=== PATIENT | female | born 1940 | race Caucasian/White ===

== ENCOUNTER → 2018-01-23 07:15 | Outpatient (CLI) | payer MEDICARE, OTHER, SELFPAY ==
[2018-01-23 09:11] LABS: Cholesterol 244 mg/dL (140-199); HDL Cholesterol 57 mg/dL (40-60); LDL Cholesterol Calculated 156 mg/dL (<100); Triglycerides 155 mg/dL (35-150)
== END ==
PROVIDERS: Family Provider Family Medicine; PCP Family Medicine; Visit Provider Family Medicine
DX: E78.5 Hyperlipidemia, unspecified (principal)
CPT/HCPCS: 36415; 80061

== ENCOUNTER → 2018-08-10 14:31 | Outpatient (CLI) | payer MEDICARE, OTHER, SELFPAY ==
[2018-08-10 15:36] LABS: Add Manual Diff / Slide Review NO; Basophils Percent Auto 0.5 % (0-2); Eosinophils Percent Auto 3.9 % (2-4); Hematocrit 46.6 % (36-46); Hemoglobin 15.5 g/dL (12.0-16.0); Lymphocytes Percent Auto 25.5 % (25-40); Mean Corpuscular HGB Conc 33.2 % (30-36); Mean Corpuscular Hemoglobin 29.9 PG (26-34); Mean Corpuscular Volume 89.9 fL (80-100); Monocytes Percent Auto 8.4 % (3-14); Neutrophils Absolute Auto 4200 /uL (3000-5900); Neutrophils Percent Auto 61.7 % (50-75); Platelet Count 209 X10^3/uL (150-400); Red Blood Cell Count 5.18 X10^6/uL (4.0-5.2); Red Cell Distribution Width 13.5 % (11.6-14.8); White Blood Cell Count 6.8 X10^3/uL (4.5-11.0)
[2018-08-10 15:47] LABS: Appearance Urine UA CLEAR; Bilirubin Urine UA NEGATIVE (NEGATIVE); Color Urine UA YELLOW; Glucose Urine UA NEGATIVE (Normal); Ketones Urine UA NEGATIVE (NEGATIVE); Leukocyte Esterase Urine UA 1+ (NEGATIVE); Nitrite Urine UA NEGATIVE (Negative); Occult Blood Urine UA TRACE-INTACT (Negative); Protein Urine UA TRACE (Negative); Urobilinogen Urine UA 0.2 E.U./dL (0.2); pH Urine UA 5.5 (4.5-8.0)
[2018-08-10 15:49] LABS: Alanine Aminotransferase 27 IU/L (9-52); Albumin 4.1 g/dL (3.5-5.0); Albumin Globulin Ratio 1.4 (1.0-2.8); Alkaline Phosphatase 83 U/L (38-126); Aspartate Aminotransferase 33 IU/L (14-36); Bilirubin Total 0.2 mg/dL (0.2-1.3); Blood Urea Nitrogen 20 mg/dL (7-17); Calcium 9.9 mg/dL (8.4-10.2); Carbon Dioxide 31 mmol/L (22-32); Chloride 105 mmol/L (98-107); Estimated Glomerular Filt Rate 53.3 mL/min (>60); Globulin 2.9 g/dL (1.7-4.1); Glucose 99 mg/dL (80-110); HEMOLYSIS < 15 (0-50); Potassium 4.6 mmol/L (3.4-5.1); Sodium 145 mmol/L (137-145)
[2018-08-10 15:55] LABS: RBC Urine None Seen (0-5/HPF)
[2018-08-10 16:13] LABS: Bacteria Urine Occasional (0-1); Culture Indicated Urine Specimen Cultured; Squamous Epithelial Cell Urine 0-1 /HPF; Transitional Epi Cells Urine 0-1/HPF (0-5/HPF); WBC Urine 5-10/HPF (0-5/HPF)
[2018-08-10 16:17] LABS: Thyroid Stimulating Hormone 1.59 uIU/mL (0.47-4.68)
== END ==
PROVIDERS: Family Provider Family Medicine; PCP Family Medicine; Visit Provider Internal Medicine
DX: R10.11 Right upper quadrant pain (principal); R11.0 Nausea; Z87.440 Personal history of urinary (tract) infections
CPT/HCPCS: 36415; 80053; 81003; 81015; 84443; 85025; 87086

== ENCOUNTER → 2018-08-21 13:12 | Outpatient (CLI) | payer MEDICARE, OTHER, SELFPAY ==
--- NOTE | 2018-08-21 13:13 | DI.US.S_ITS ---
PROCEDURE: US PELVIC COMPLETE INDICATIONS: RUQ AND ABDOMINAL PAIN, NAUSEA TECHNIQUE: Real-time scanning was performed of the pelvic organs, with image documentation. Additional endovaginal scanning was performed at the patient's request. COMPARISON: None. FINDINGS: Transabdominal scanning: Limited scanning through the kidneys shows no hydronephrosis. No pathologic free abdominal or pelvic fluid. Endovaginal scanning: Uterus: Uterus is normal in size at 6.8 x 2.2 x 3.1 cm. The endometrium is not well visualized and there is a 1.6 x 1.3 x 1.5 cm hypoechoic focus within the mid uterus. Ovaries: Normal left ovary measured 1.2 x 0.7 x 1.5 cm. The right ovary is not seen. No adnexal masses. IMPRESSION: 1. Limited examination as high-resolution into vaginal ultrasound was declined by the patient. Within the limits, hypoechoic focus within the mid uterus which could represent a fibroid, although other both benign or malignant etiologies cannot be excluded. If indicated, pre and postcontrast gynecologic protocol MRI could be performed. Dictated by: Ishan Bright Leighton Interpreted: Abdifatah Brice MD on 08/21/2018 at 14:21 Approved by: Abdifatah Brice M.D. on 08/21/2018 at 14:29
--- NOTE | 2018-08-21 13:13 | DI.US.S_ITS ---
PROCEDURE: US ABDOMEN COMPLETE INDICATIONS: RUQ PAIN AND NAUSEA TECHNIQUE: Real-time scanning was performed of the abdominal and retroperitoneal organs, with image documentation. COMPARISON: [facility], US, ABDOMEN COMPLETE, 05/29/2016, 8:22. FINDINGS: Liver: Liver is normal in size and homogeneous in echotexture. Gallbladder: No gallstones identified. Normal gallbladder wall. No pericholecystic fluid. Negative sonographic Lebron sign. Biliary ducts: Intrahepatic bile ducts are non-dilated. Extrahepatic bile duct caliber measures 5.0 mm. Normal is 6-7 mm or less in diameter, or 10 mm or less post-cholecystectomy. Pancreas: Visualized portions of the pancreas are sonographically normal. Spleen: Spleen is normal in size and homogeneous in echotexture. Kidneys: Right kidney not well-seen left kidney measures 8.6 cm long. No hydronephrosis or nephrolithiasis. No solid masses. Aorta: Visualized aorta is normal in caliber at less than 3 cm. Iliacs: Not well-seen. IVC: Intrahepatic inferior vena cava is patent. Miscellaneous: No free abdominal fluid. IMPRESSION: 1. No source for right upper quadrant pain and nausea identified. Dictated by: Ishan Bright [facility] Interpreted: Abdifatah Brice MD on 08/21/2018 at 14:19 Approved by: Abdifatah Brice M.D. on 08/21/2018 at 14:29
== END ==
PROVIDERS: Family Provider Family Medicine; PCP Family Medicine; Visit Provider Internal Medicine
DX: R10.11 Right upper quadrant pain (principal); R11.0 Nausea
CPT/HCPCS: 76700; 76856

== ENCOUNTER 2018-08-22 19:15 | Emergency (ER) | payer MEDICARE, OTHER, SELFPAY ==
[2018-08-22 19:24] VITALS: BP 145/87; PULSE 78; RESP 16; TEMP 36.1; O2SAT 95; BMI 27.4
--- NOTE | 2018-08-22 21:45 | ED.EXTPRO ---
HPI - Extremity Problem <JEANNE Sheth - Last Filed: 08/22/18 22:31> General Chief complaint: Extremity Problem,Nontraumatic Stated complaint: RIGHT SHOULDER PAIN Time Seen by Provider: 08/22/18 21:43 Source: patient Mode of arrival: ambulatory Limitations: no limitations History of Present Illness HPI Narrative: 78-year-old female with history of COPD and hypertension is a nonsmoker for complaint of pain into her right biceps area. She states that she was pulling clothes out of the dryer earlier today when she felt pain to the right biceps area. She denies any trauma. No falls. She did not Bang her bicep into any objects. Increased pain with flexion of the right arm. Decreased pain with holding the right arm still. She states use Tylenol for the discomfort earlier today but it did not help much. She denies any other injuries or concerns at this point. Related Data Home Medications Medication Instructions Recorded Confirmed aspirin 81 mg PO QDAY #0 06/10/13 08/10/18 biotin 500 mcg #0 08/14/17 08/10/18 calcium carbonate 600 mg PO #0 08/14/17 08/10/18 losartan 50 mg tablet 50 mg PO DAILY 08/10/18 08/10/18 Previous Rx's Medication Instructions Recorded albuterol sulfate [Ventolin HFA] 2 puff IH Q4HP PRN #1 inh 09/11/16 fluticasone [Flovent HFA] 2 puff IH QID PRN #1 inh 09/30/16 hydrocodone 5 mg-acetaminophen 300 1 tab PO Q6H PRN #10 tab 04/07/18 mg tablet fluocinolone acetonide oil 0.01 % 1 drop OTIC (EAR) BID #20 ml 04/30/18 ear drops hydrocodone-acetaminophen [[place]] 1 tab PO Q6H PRN #5 tab 08/22/18 Allergies Allergy/AdvReac Type Severity Reaction Status Date / Time Sulfa (Sulfonamide Allergy Mild RASH Verified 08/22/18 19:24 Antibiotics) gabapentin [From NEURONTIN] Allergy Unknown muscle pain Verified 08/22/18 19:24 atorvastatin AdvReac Severe severe Verified 08/22/18 19:24 myalgia -ADMITTED TO ICU codeine AdvReac Mild N/V Verified 08/22/18 19:24 erythromycin base AdvReac Mild VOMITING Verified 08/22/18 19:24 Review of Systems <JEANNE Sheth - Last Filed: 08/22/18 22:31> Eyes Denies change in vision, Denies eye discharge, Denies irritation and Denies loss of vision ENT Ears, Nose, Mouth, and Throat: Denies change in voice, Denies neck pain and Denies sore throat Cardiovascular Denies chest pain, Denies irregular heart rhythm, Denies lightheadedness, Denies palpitations, Denies dyspnea, Denies dyspnea on exertion and Denies orthopnea Respiratory Denies cough, Denies dyspnea, Denies dyspnea on exertion and Denies wheezing Gastrointestinal Gastrointestinal: Denies abdominal pain, Denies change in bowel habits, Denies diarrhea, Denies nausea and Denies vomiting Genitourinary Denies hematuria, Denies flank pain, Denies urinary incontinence and Denies urinary urgency Musculoskeletal Denies neck pain Comments: Right arm pain Integumentary/Breasts Denies pruritus, Denies erythema, Denies rash and Denies wounds Neurologic Denies confusion and Denies loss of vision Psychiatric Denies anxiety, Denies confusion, Denies depression, Denies homicidal ideation and Denies suicidal ideation Endocrine Denies palpitations Allergic/Immunologic Denies wheezing Exam <JEANNE Sheth - Last Filed: 08/22/18 22:31> Initial Vital Signs Initial Vital Signs: Vital Signs Temperature 96.9 F L 08/22/18 19:24 Pulse Rate 78 08/22/18 19:24 Respiratory Rate 16 08/22/18 19:24 Blood Pressure 145/87 H 08/22/18 19:24 Pulse Oximetry 95 08/22/18 19:24 Const General: cooperative and well developed Nutritional Appearance: well nourished Orientation: alert, awake, oriented x3 and not confused [facility] Mouth: oral mucosae normal and moist mucous membranes Eyes Conjunctivae: conjunctivae normal Sclera: sclerae normal Pupils: PERRL EOM: EOM intact bilaterally Resp Effort & Inspection: normal respiratory effort, able to speak in complete sentences, no respiratory distress and no use of accessory muscles Auscultation: clear to auscultation bilaterally, no rales, no rhonchi and no wheezes Cardio Rate: regular rate Rhythm: regular rhythm Heart Sounds: no click, no gallops, no murmurs and no rubs Pulses: normal peripheral pulses Skin General: no rashes or lesions noted, No jaundice and No petechiae Neuro General: alert, oriented x3, gait normal and no focal motor deficits Speech: speech normal Extrem Other: tenderness on palpation to the right biceps area. Erythema to the anterior biceps area. No significant swelling. No induration no fluctuance. No deformities. Distal sensation is intact. Distal range of motion is intact. Distal pulses are intact. Biceps comparable in size to left biceps. <Ra Carlsno MD - Last Filed: 08/23/18 05:09> Initial Vital Signs Initial Vital Signs: Vital Signs Temperature 96.9 F L 08/22/18 19:24 Pulse Rate 78 08/22/18 19:24 Respiratory Rate 16 08/22/18 19:24 Blood Pressure 145/87 H 08/22/18 19:24 Pulse Oximetry 95 08/22/18 19:24 Course <JEANNE Sheth - Last Filed: 08/22/18 22:31> Orders Ordered: Discontinued Medications Hydrocodone Bitart/Acetaminophen ([place] 5/325) 1 tab PO NOW ONE Stop: 08/22/18 21:59 Last Admin: 08/22/18 22:11 Dose: 1 tab Vital Signs - 8 hr 08/22/18 22:18 Pulse Rate 83 Blood Pressure 139/92 H <Ra Carlson MD - Last Filed: 08/23/18 05:09> Orders Ordered: Discontinued Medications Hydrocodone Bitart/Acetaminophen ([place] 5/325) 1 tab PO NOW ONE Stop: 08/22/18 21:59 Last Admin: 08/22/18 22:11 Dose: 1 tab Vital Signs - 8 hr 08/22/18 22:18 Pulse Rate 83 Blood Pressure 139/92 H MDM - Extremity (Nontraumatic) <JEANNE Sheth - Last Filed: 08/22/18 22:31> MDM Narrative Medical decision making narrative: no significant hematoma appreciated to the right biceps area. Right biceps appears intact. signs and symptoms presents as strain into the right biceps area. Will treat conservatively at this point with Tylenol. Patient request pain medication other than Tylenol so she is given a handful of [place]. Follow up with primary care provider later this week for re-evaluation. If continued pain or problems may need advanced imaging such as MRI. Rest area. Any worsening symptoms return to the emergency room. Discharge Plan Departure Patient Disposition: Home Clinical Impression: Muscle strain of right upper arm Discharge Date/Time: 08/22/18 22:20 Interventions: ED Discharge Assessment Last Done: 08/22/18 22:18 Instructions: DI for Muscle Strain Activity Restrictions/Additional Instructions: biceps muscle appears to be intact at this time. Signs and symptoms presents as a muscle strain. Rest area. Use [id number] Tylenol as needed for any discomfort. Small amount of [place] is provided for breakthrough pain use as directed no driving while on the [place]. Follow up with your primary care provider later this week for re-evaluation. If continued pain or worsening pain me to have advanced imaging such as MRI. For any worsening symptoms return to the emergency room. Prescriptions: New hydrocodone-acetaminophen [[place]] 5-325 mg tablet 1 tab PO Q6H PRN (Reason: pain) Qty: 5 RF: 0 No Action aspirin 81 MG tablet,delayed release (DR/EC) 81 mg PO QDAY Qty: 0 RF: 0 albuterol sulfate [Ventolin HFA] 90 MCG/PUFF HFA aerosol inhaler 2 puff IH Q4HP PRNQty: 1 RF: 6 fluticasone [Flovent HFA] 12 GM HFA aerosol inhaler 2 puff IH QID PRNQty: 1 RF: 3 calcium carbonate 600 MG tablet 600 mg PO Qty: 0 RF: 0 biotin 300 MCG tablet 500 mcg Qty: 0 RF: 0 fluocinolone acetonide oil [DermOtic Oil] 0.01 % drops 1 drop otic (ear) BID Qty: 20 RF: 2 hydrocodone-acetaminophen 5-300 mg tablet 1 tab PO Q6H PRN (Reason: pain) Qty: 10 RF: 0 losartan 50 mg tablet 50 mg PO DAILY RF: 0 Referrals: Archie Alexander MD [Primary Care Provider] - <Ra Carlson MD - Last Filed: 08/23/18 05:09> Cosign ED Attending Cosignature Attestation: I was present in the ER at the time this patient's care. I was available for verbal consultation or to see the patient directly if requested. I agree with the assessment and treatment plan.
[2018-08-22] MEDS: HYDROCODONE/ACET 5/325 TABLET 1 TAB PO (22:11)
[2018-08-22 22:18] VITALS: BP 139/92; PULSE 83
== END 2018-08-22 22:20 | disposition home or self-care (01) ==
PROVIDERS: Emergency Provider Nurse Practitioner Family; Family Provider Family Medicine; PCP Family Medicine
DX: S46.911A Strain of unspecified muscle, fascia and tendon at shoulder and upper arm level, right arm, initial encounter (principal); X50.1XXA Overexertion from prolonged static or awkward postures, initial encounter
CPT/HCPCS: 99282; 99283

== ENCOUNTER → 2018-10-27 07:28 | Outpatient (CLI) | payer MEDICARE, OTHER, SELFPAY ==
[2018-10-27 09:08] LABS: Cholesterol 268 mg/dL (140-199); HDL Cholesterol 54 mg/dL (40-60); LDL Cholesterol Calculated 173 mg/dL (<100); Triglycerides 205 mg/dL (35-150)
== END ==
PROVIDERS: Family Provider Family Medicine; PCP Family Medicine; Visit Provider Family Medicine
DX: E78.5 Hyperlipidemia, unspecified (principal)
CPT/HCPCS: 36415; 80061

== ENCOUNTER → 2019-02-10 07:21 | Outpatient (CLI) | payer MEDICARE, OTHER, SELFPAY ==
[2019-02-10 08:46] LABS: Cholesterol 207 mg/dL (140-199); HDL Cholesterol 58 mg/dL (40-60); LDL Cholesterol Calculated 122 mg/dL (<100); Triglycerides 133 mg/dL (35-150)
== END ==
PROVIDERS: PCP Family Medicine; Visit Provider Family Medicine
DX: E78.5 Hyperlipidemia, unspecified (principal)
CPT/HCPCS: 36415; 80061

== ENCOUNTER → 2019-06-10 09:02 | Outpatient (CLI) | payer MEDICARE, OTHER, SELFPAY ==
[2019-06-10 10:29] LABS: Appearance Urine UA CLEAR; Bilirubin Urine UA NEGATIVE (NEGATIVE); Color Urine UA YELLOW; Glucose Urine UA NEGATIVE (Negative); Ketones Urine UA NEGATIVE (NEGATIVE); Leukocyte Esterase Urine UA TRACE (NEGATIVE); Nitrite Urine UA NEGATIVE (Negative); Occult Blood Urine UA NEGATIVE (Negative); Protein Urine UA NEGATIVE (Negative); Specific Gravity Urine UA <=1.005 (1.000-1.035); Urobilinogen Urine UA 0.2 E.U./dL (0.2)
[2019-06-10 11:03] LABS: Bacteria Urine None Seen; RBC Urine None Seen (0-5/HPF); pH Urine UA 5.5 (4.5-8.0)
[2019-06-10 11:05] LABS: Culture Indicated Urine Specimen Cultured; Squamous Epithelial Cell Urine 0-1 /HPF (0-5/HPF); WBC Urine 0-1/HPF (0-5/HPF)
== END ==
PROVIDERS: PCP Family Medicine; Visit Provider Family Medicine
DX: R30.0 Dysuria (principal)
CPT/HCPCS: 81003; 81015; 87086

== ENCOUNTER → 2019-10-02 09:51 | Outpatient (CLI) | payer MEDICARE, OTHER, SELFPAY ==
[2019-10-02 10:14] LABS: Appearance Urine UA SL CLOUDY; Bilirubin Urine UA NEGATIVE (NEGATIVE); Color Urine UA YELLOW; Glucose Urine UA NEGATIVE (Negative); Ketones Urine UA NEGATIVE (NEGATIVE); Leukocyte Esterase Urine UA 3+ (NEGATIVE); Nitrite Urine UA NEGATIVE (Negative); Occult Blood Urine UA TRACE-INTACT (Negative); Protein Urine UA TRACE (Negative); Specific Gravity Urine UA 1.015 (1.000-1.035); Urobilinogen Urine UA 0.2 E.U./dL (0.2)
[2019-10-02 10:18] LABS: pH Urine UA 6.5 (4.5-8.0)
[2019-10-02 10:30] LABS: Bacteria Urine Few (2-10); Culture Indicated Urine Specimen Cultured; RBC Urine 1-5/HPF (0-5/HPF); Squamous Epithelial Cell Urine 1-5 /HPF (0-5/HPF); WBC Urine >100/HPF (0-5/HPF)
== END ==
PROVIDERS: PCP Family Medicine; Visit Provider Family Medicine
DX: R30.0 Dysuria (principal); R35.0 Frequency of micturition
CPT/HCPCS: 81001; 87077; 87086; 87186

== ENCOUNTER → 2020-02-07 08:48 | Outpatient (CLI) | payer MEDICARE, OTHER, SELFPAY ==
[2020-02-10 16:14] LABS: COVID19 Sendout Not Detected (Not Detected)
== END ==
PROVIDERS: PCP Family Medicine; Visit Provider Registered Nurse
DX: R53.83 Other fatigue (principal)
CPT/HCPCS: 87635

== ENCOUNTER → 2020-03-03 07:43 | Outpatient (CLI) | payer MEDICARE, OTHER, SELFPAY ==
[2020-03-03 08:25] LABS: Alanine Aminotransferase 13 IU/L (<35); Albumin 3.9 g/dL (3.5-5.0); Albumin Globulin Ratio 1.4 (1.0-2.8); Alkaline Phosphatase 86 U/L (38-126); Aspartate Aminotransferase 36 IU/L (14-36); BUN Creatinine Ratio 20.2 (6-22); Bilirubin Total 0.4 mg/dL (0.2-1.3); Blood Urea Nitrogen 19 mg/dL (7-17); Calcium 10.2 mg/dL (8.4-10.2); Carbon Dioxide 29 mmol/L (22-32); Chloride 107 mmol/L (98-107); Cholesterol 242 mg/dL (140-199); Estimated Glomerular Filt Rate 57.2 mL/min (>60); Globulin 2.7 g/dL (1.7-4.1); Glucose 92 mg/dL (80-110); HDL Cholesterol 48 mg/dL (40-60); HEMOLYSIS < 15 (0-50); LDL Cholesterol Calculated 156 mg/dL (<100); Potassium 4.3 mmol/L (3.4-5.1); Sodium 139 mmol/L (137-145); Total Protein 6.6 g/dL (6.3-8.2); Triglycerides 192 mg/dL (35-150); Uric Acid 6.1 mg/dL (2.5-6.2)
== END ==
PROVIDERS: PCP Family Medicine; Referring Provider Family Medicine; Visit Provider Family Medicine
DX: E78.5 Hyperlipidemia, unspecified (principal); M10.9 Gout, unspecified
CPT/HCPCS: 36415; 80053; 80061; 84550

== ENCOUNTER → 2020-03-09 09:00 | Outpatient (CLI) | payer MEDICARE, OTHER, SELFPAY ==
--- NOTE | 2020-03-09 09:02 | DI.RAD.S_ITS ---
PROCEDURE: XR ANKLE RT MIN 3V INDICATIONS: ankle pain TECHNIQUE: 3 views of the ankle were acquired. COMPARISON: None. FINDINGS: Bones: Plantar calcaneal spur. Ununited ossicle projects adjacent to the medial malleolus although radiographically this is technically age-indeterminate. Minimal posterior calcaneal spurs. Soft tissues: No tibiotalar joint effusion. Achilles tendon appears normal. Mild lateral soft tissue swelling IMPRESSION: Chronic appearing ossicle adjacent to the tip of the medial malleolus possibly loose body or remote fracture fragment although technically age-indeterminate. If clinically necessary, follow followup radiographs in 10 days could be performed. Elsewhere, no fracture Plantar calcaneal spur Dictated by: Richar Davidson M.D. on 03/09/2020 at 13:56 Approved by: Richar Davidson M.D. on 03/09/2020 at 13:59
== END ==
PROVIDERS: PCP Family Medicine; Referring Provider Family Medicine; Visit Provider Family Medicine
DX: M25.571 Pain in right ankle and joints of right foot (principal); M77.31 Calcaneal spur, right foot; M25.471 Effusion, right ankle; E78.5 Hyperlipidemia, unspecified
CPT/HCPCS: 73610

== ENCOUNTER → 2020-05-23 13:35 | Outpatient (CLI) | payer MEDICARE, OTHER, SELFPAY | PROVIDERS: PCP Family Medicine; Visit Provider Physician Assistant | DX: R30.0 Dysuria (principal) | CPT/HCPCS: 87077; 87086; 87186 ==

== ENCOUNTER → 2020-09-05 07:03 | Outpatient (CLI) | payer MEDICARE, OTHER, SELFPAY ==
[2020-09-05 09:12] LABS: BUN Creatinine Ratio 22.1 (6-22); Blood Urea Nitrogen 19 mg/dL (7-17); Calcium 10.2 mg/dL (8.4-10.2); Carbon Dioxide 32 mmol/L (22-32); Chloride 106 mmol/L (98-107); Cholesterol 258 mg/dL (140-199); Estimated Glomerular Filt Rate > 60.0 mL/min (>60); Glucose 98 mg/dL (80-110); HDL Cholesterol 57 mg/dL (40-60); HEMOLYSIS < 15 (0-50); LDL Cholesterol Calculated 143 mg/dL (<100); Potassium 4.4 mmol/L (3.4-5.1); Sodium 140 mmol/L (137-145); Triglycerides 290 mg/dL (35-150); Uric Acid 6.4 mg/dL (2.5-6.2)
== END ==
PROVIDERS: PCP Family Medicine; Referring Provider Family Medicine; Visit Provider Family Medicine
DX: M25.473 Effusion, unspecified ankle (principal); E78.5 Hyperlipidemia, unspecified; M25.579 Pain in unspecified ankle and joints of unspecified foot; M25.471 Effusion, right ankle; M25.571 Pain in right ankle and joints of right foot
CPT/HCPCS: 36415; 80048; 80061; 84550

== ENCOUNTER → 2020-10-17 10:36 | Outpatient (CLI) | payer MEDICARE, OTHER, SELFPAY ==
--- NOTE | 2020-10-17 | DI.MG.S_ITS ---
BILATERAL DIGITAL SCREENING MAMMOGRAM 3D/2D WITH CAD: 10/17/2020 CLINICAL: Routine screening. Comparison is made to exams dated: 10/16/2017 mammogram, 11/07/2015 mammogram, and 07/26/2008 mammogram - [facility]. There are scattered fibroglandular elements in both breasts. Current study was also evaluated with a Computer Aided Detection (CAD) system. No significant masses, calcifications, or other findings are seen in either breast. There has been no significant interval change. IMPRESSION: NEGATIVE There is no mammographic evidence of malignancy. A 1 year screening mammogram is recommended. This exam was interpreted at Station ID: [id number]. NOTE: For mammograms, a report in lay terms will be sent to the patient. Approximately 15% of breast malignancies will not be visualized mammographically. In the management of a palpable breast mass, a negative mammogram must not discourage biopsy of a clinically suspicious lesion. Electronically Signed By: Consuelo velarde/rima:10/17/2020 16:27:54 copy to: ASHOK SALVADOR letter sent: Normal Exam ACR BI-RADS Category 1: Negative [id number]
== END ==
PROVIDERS: PCP Family Medicine; Referring Provider Family Medicine; Visit Provider Family Medicine
DX: Z12.31 Encounter for screening mammogram for malignant neoplasm of breast (principal)
CPT/HCPCS: 77063; 77067

== ENCOUNTER → 2020-11-16 10:16 | Outpatient (CLI) | payer MEDICARE, OTHER, SELFPAY ==
[2020-11-16 10:53] LABS: COVID19 -Nasal RAPID Negative (Negative)
== END ==
PROVIDERS: PCP Family Medicine; Visit Provider Family Medicine
DX: Z01.812 Encounter for preprocedural laboratory examination (principal); Z20.822 Contact with and (suspected) exposure to COVID-19
CPT/HCPCS: 87635; C9803

== ENCOUNTER 2020-11-17 07:39 | Day surgery (SDC) | payer MEDICARE, OTHER, SELFPAY ==
[2020-11-17] VITALS (9 sets, daily range): BP systolic 113–138; BP diastolic 60–95; PULSE 61–88; RESP 12–18; TEMP 36.7–37.1; O2SAT 92–97; BMI 27.4
[2020-11-17] MEDS: LACTATED RINGERS 1,000 ML 100 ML IV (07:58)
[2020-11-17] MEDS: ACETAMINOPHEN 325 MG TABLET 975 MG PO (09:02)
--- NOTE | 2020-11-17 09:13 | PM.PREOP ---
Pre-operative Note COVID-19 COVID-19 status: Negative Result date/Date tested (Pos, Neg/Pending): 11/16/20 Interval Note History & Physical reviewed/Exam performed by Physician: Yes Changes to H&P: No
[2020-11-17] MEDS: CEFAZOLIN 2 GM/100 ML FROZ.PIGGY IV (09:25)
--- NOTE | 2020-11-17 09:34 | SUR.OPER ---
Lithotomy on padded OR bed, head on pillow, arms secured on padded arm boards at <90 degrees abduction. Legs secured in padded yellow fins stirrups.
[2020-11-17] MEDS: SODIUM CHLORIDE 0.9% FLUSH 10 ML IV (09:39)
[2020-11-17] MEDS: BUPIVACAINE 0.5% W/ EPI (PF) 30 ML VIAL INJ (09:39)
--- NOTE | 2020-11-17 10:30 | P.OP_ITS ---
Operative Date/Time/Diagnoses Date of procedure: 11/17/20 Time of procedure: 10:30 Pre-op diagnosis: incomplete uterovaginal prolapse Post-op diagnosis: same Procedure & Clinicians Procedure: [place] colpocleisis Same procedure as scheduled: Yes Indications: symptomatic partial uterovaginal prolapse Surgeon: Elza Julio Click Yes if Unassisted: Yes Anesthesia Type: General Operative Notes Findings: cervix prolapsing to the hymen with cystocele. Closure Type: primary Specimen(s): none sent Estimated Blood Loss (mL): 25 Blood products transfused: none Procedure in detail: - Patient was brought to the operating room where she was in a supine position in [facility] and underwent a light general anesthetic. She was prepped and draped in the usual sterile fashion. Her bladder was drained. 2 g of Ancef were in prior to beginning of the case. Warming was in place. Pulsatile stockings were in place. Area on anterior and posterior wall of the prolapse were marked with a marking pen and injected with a dilute solution of half percent Marcaine with epinephrine. The skin was incised with a scalpel and undermined with and removed removed with Metzenbaum scissors. 2-0 Vicryl suture was used in an interrupted fashion to close anterior to posterior on the sides creating a tunnel from the cervix to the external area. 0 Vicryl suture interrupted was placed from the anterior cervical fascia to the posterior cervical fascia to invert the cervix. The vaginal incision was closed from anterior to posterior fully inverting the cervix. Counts of instruments and sponges were correct. Patient went to recovery room in good condition. Complications: none Post-operative Condition: stable Disposition: same day surgery Plan for aftercare: Home when awake and stable
--- NOTE | 2020-11-17 11:33 | SUR.PHASEII ---
Patient care by Magnolia Pascual RN and Opal Trammell RN; documentation by Felipe Kessler RN
== END 2020-11-17 11:42 | disposition home or self-care (01) ==
PROVIDERS: PCP Family Medicine; Referring Provider Specialist; Visit Provider Specialist
PROC: (CPT 57120; principal; 2020-11-17 09:00)
DX: N81.2 Incomplete uterovaginal prolapse (principal); J45.909 Unspecified asthma, uncomplicated
CPT/HCPCS: 57120; J0690; J1100; J2405; J2704

== ENCOUNTER → 2021-03-19 09:05 | Outpatient (CLI) | payer MEDICARE, OTHER, SELFPAY ==
--- NOTE | 2021-03-19 09:06 | DI.MRI.S_ITS ---
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 COMPARISON: None. FINDINGS: Image quality: Limited study which was prematurely terminated by the patient without acquisition of sagittal stir sequence. Please note that oblique images were not obtained either, which limits precision in evaluating the degree of neural foraminal stenosis. Alignment and Curvature: There is normal bony alignment. Bone Marrow: Limit evaluation of marrow signal without acquisition of STIR sequence. Marrow edema cannot be excluded. There is no suspicious focus of low T1 marrow signal intensity. Spinal Cord: Normal morphology and signal intensity of the cord on the sequences which were obtained. Regional Soft Tissues: Prevertebral and paraspinous soft tissues are unremarkable. C2-C3: No spinal canal or neural foraminal stenosis. C3-C4: Mild spinal canal stenosis. Moderate to severe neural foraminal narrowing bilaterally. C4-C5: Severe left and moderate-severe right neural foraminal narrowing. Mild spinal canal stenosis. C5-C6: Mild spinal canal stenosis. Moderate to severe bilateral neural foraminal narrowing. C6-C7: No spinal canal or definite neural foraminal narrowing. C7-T1: No spinal canal or definite neural foraminal narrowing. IMPRESSION: Limited exam which was prematurely terminated by the patient, prior to the acquisition of sagittal STIR sequence and foraminal oblique sequences. Evaluation for marrow edema is precluded. Evaluation of neural foraminal narrowing is limited. Multilevel multifactorial degenerative changes as described above with multiple areas of moderate and severe neural foraminal narrowing. Dictated by: Archie Mckeon M.D. on 03/19/2021 at 10:22 Approved by: Archie Mckeon M.D. on 03/19/2021 at 10:28
== END ==
PROVIDERS: PCP Family Medicine; Referring Provider Physical Medicine & Rehabilitation; Visit Provider Physical Medicine & Rehabilitation
DX: M47.812 Spondylosis without myelopathy or radiculopathy, cervical region (principal); M48.02 Spinal stenosis, cervical region
CPT/HCPCS: 72141

== ENCOUNTER → 2021-06-18 12:25 | Outpatient (CLI) | payer MEDICARE, OTHER, SELFPAY | PROVIDERS: PCP Family Medicine; Visit Provider Nurse Practitioner Family | DX: N34.3 Urethral syndrome, unspecified (principal) | CPT/HCPCS: 87077; 87086; 87186 ==

== ENCOUNTER → 2021-07-04 10:19 | Outpatient (CLI) | payer MEDICARE, OTHER, SELFPAY ==
[2021-07-04 12:34] LABS: Appearance Urine UA SL CLOUDY; Bilirubin Urine UA NEGATIVE (NEGATIVE); Color Urine UA YELLOW; Glucose Urine UA NEGATIVE (Negative); Ketones Urine UA NEGATIVE (NEGATIVE); Leukocyte Esterase Urine UA 2+ (NEGATIVE); Nitrite Urine UA NEGATIVE (Negative); Occult Blood Urine UA 1+ (Negative); Protein Urine UA NEGATIVE (Negative); Urobilinogen Urine UA 0.2 E.U./dL (0.2)
[2021-07-04 12:45] LABS: pH Urine UA 5.5 (4.5-8.0)
[2021-07-04 12:46] LABS: Bacteria Urine Few (2-10); Culture Indicated Urine Specimen Cultured; RBC Urine None Seen (0-5/HPF); Squamous Epithelial Cell Urine None Seen (0-5/HPF); WBC Urine 10-30/HPF (0-5/HPF)
== END ==
PROVIDERS: PCP Family Medicine; Referring Provider Internal Medicine Nephrology; Visit Provider Internal Medicine Nephrology
DX: N39.0 Urinary tract infection, site not specified (principal)
CPT/HCPCS: 81001; 87077; 87086; 87186

== ENCOUNTER 2022-02-05 11:15 | Emergency (ER) | payer MEDICARE, OTHER, SELFPAY ==
[2022-02-05 11:40] VITALS: BP 119/81; PULSE 71; RESP 14; TEMP 36.4; O2SAT 99; BMI 27.1
[2022-02-05 13:50] VITALS: BP 146/72; PULSE 76; O2SAT 97
--- NOTE | 2022-02-05 14:58 | ED_ITS ---
HPI - Headache <Gayathri Nikolay Nava [facility] - Last Filed: 02/05/22 15:52> General Chief Complaint: Headache Stated Complaint: Fall last night- hit head, nausea Time Seen by Provider: 02/05/22 14:06 Mode of arrival: Ambulatory History of Present Illness HPI Narrative: This is an 81-year-old female without significant medical history who presents emergency department complaining of a fall which happened last night in which she hit her head, denies loss of consciousness but endorses mild nausea with the headache still today. Patient states that she took Tylenol which helped her headache last night and endorses left-sided neck and shoulder pain with muscle spasms. Patient states that she has a history of neck surgery and multiple back surgeries, other orthopedic surgeries, endorses that she was supposed to have a epidural for her left-sided neck pain and symptoms today but she has canceled it. She endorses left-sided shoulder pain after her fall, denies any episodes of vomiting, denies any vision changes including blurred vision and double vision. Patient denies being on any anticoagulants, states that she normally takes baby aspirin each day but has not taken it for eight days in preparation for the procedure those supposed to happen today. Patient jaw pain temp she had her head. She states that she has footdrop from a prior back surgery in her right foot, she also has pre-existing balance issues and denies that she has talked to her doctor about this. She states that she was running after the CT and did not pick her feet up fast enough and fell forward into the chair onto the floor she does not quite remember striking the left side of her face and head. She has a small bump a of head, states that two is painful but denies any limitations to her jaw or range of motion, states that it feels much better today. She states that her headache is only a 3/10 currently compared to a 10/10 that was last night. Related Data Home Medications Medication Instructions Recorded Confirmed aspirin 81 mg tablet,delayed 81 mg PO QDAY #0 06/10/13 06/18/21 release [id number]-[id number]-[id number] tablet 1 tab PO DAILY 03/01/20 06/18/21 acetaminophen 650 mg tablet 650 mg PO Q4H PRN 11/17/20 06/18/21 Previous Rx's Medication Instructions Recorded albuterol sulfate 90 mcg/actuation 2 puff INHALATION Q4HP PRN #1 inh 08/24/20 aerosol inhaler (Ventolin HFA) acetaminophen 300 mg-codeine 15 mg 1 tab PO Q4H PRN #20 tab 11/15/20 tablet beclomethasone dipropionate 80 1 inh INHALATION QAM #10.6 g 12/25/20 mcg/actuation HFA breath activated aerosol (Qvar RediHaler) buspirone 5 mg tablet 5 mg PO BID #60 tab 01/17/21 phenazopyridine 200 mg tablet 200 mg PO TID 0 Days #6 tab 06/18/21 (Pyridium) losartan 50 mg tablet 50 mg PO DAILY #90 tab 11/01/21 cyclobenzaprine 5 mg tablet 5 mg PO DAILY PRN #20 tab 02/05/22 lidocaine 5 % topical patch 1 patch TOPICAL DAILY PRN #15 ea 02/05/22 (Lidoderm) methocarbamol 500 mg tablet 500 mg PO TID PRN #20 tab 02/05/22 ondansetron 4 mg disintegrating 4 mg PO Q8H PRN #10 tab 02/05/22 tablet Allergies Allergy/AdvReac Type Severity Reaction Status Date / Time Sulfa (Sulfonamide Allergy Mild RASH Verified 02/05/22 11:40 Antibiotics) atorvastatin AdvReac Severe severe Verified 02/05/22 11:40 myalgia -ADMITTED TO ICU codeine AdvReac Mild N/V Verified 02/05/22 11:40 Review of Systems <JEANNE Rivera - Last Filed: 02/05/22 15:52> Review of Systems Narrative: General: denies fever, chills, malaise, sweats, fatigue Head/Neck: denies headache, neck pain, dizziness Eyes: denies visual changes, eye pain Cardio: denies chest pain, palpitations, edema Respiratory: denies dyspnea, cough, orthopnea GI: denies abdominal pain, nausea, vomiting, or diarrhea : denies dysuria, hematuria, urinary retention, frequency or incontinence MSK: denies joint pain, muscle weakness Skin: denies rash, itching, skin lesions or other Neuro: denies numbness, tingling Patient History <JEANNE Rivera - Last Filed: 02/05/22 15:52> Medical History Anxiety Asthma Chronic obstructive pulmonary disease COPD (chronic obstructive pulmonary disease) Gastric ulcer Hayfever Hemorrhoid Hyperlipidemia Hypertension Nausea Postmenopausal Right upper quadrant pain Urinary incontinence Surgical History No history of previous surgery (05/30/17) Family History Mother CVA (cerebral infarction) Social History marital status: household members: spouse Smoking Status: Never smoker alcohol intake: current substance use type: does not use Smoking Status: Never smoker alcohol intake frequency: holidays/special occasions only Substance Use Type: does not use Exam <JEANNE Rivera - Last Filed: 02/05/22 15:52> Narrative Exam Narrative: Independently reviewed vitals signs and nursing notes. General: cooperative, comfortable, in no acute distress, well groomed Head: Tenderness with a small lump of edema on a left yarsani, tender to palpat ion, symmetrical facial expressions Neck: supple Eyes: equal round and reactive, EOMI, conjunctiva normal, vision without deficit or changes Nose: nares patent, no rhinorrhea Mouth/Throat: moist mucus membranes Cardiovascular: regular rate and rhythm, no peripheral edema, warm extremities Respiratory: normal effort, able to speak in complete sentences, no audible wheezing, stridor, or rales. No retractions or tachypnea. GI: abdomen soft, nontender to palpation, nondistended, no masses, no exquisite tenderness with exam, without guarding or rebound. MSK: moves all extremities, neurovascularly intact, no weakness, normal tone Skin: brisk capillary refill, no rash, no erythema Neuro: normal speech and cognition, A&O x3 Psych: mental status is grossly normal, congruent mood, normal affect, pleasant and cooperative Initial Vital Signs Initial Vital Signs: Vital Signs Temperature 97.6 F 02/05/22 11:40 Pulse Rate 71 02/05/22 11:40 Respiratory Rate 14 02/05/22 11:40 Blood Pressure 119/81 02/05/22 11:40 Pulse Oximetry 99 02/05/22 11:40 <Alberto Urrutia DO - Last Filed: 02/10/22 03:35> Initial Vital Signs Initial Vital Signs: Vital Signs Temperature 97.6 F 02/05/22 11:40 Pulse Rate 71 02/05/22 11:40 Respiratory Rate 14 02/05/22 11:40 Blood Pressure 119/81 02/05/22 11:40 Pulse Oximetry 99 02/05/22 11:40 Scores <JEANNE Rivera - Last Filed: 02/05/22 15:52> [place] CT Head Rule Age <16 years old: No Patient on blood thinners: No Seizure after injury: No Exclusion: Patient NOT Excluded, Proceed to next steps GCS < 15 at 2 hr post trauma: No Suspected open or depressed skull fracture: No Any sign of basilar skull fracture (hemotympanum, raccoon eyes, Ingram's sign, CSF becka-/rhinorrhea): No Two or more episodes of vomiting: No Age greater or equal to 65 years: Yes Retrograde amnesia to the event greater or equal to 30 min: No Dangerous Mechanism (pedestrian vs. mv, occupant ejected from mv, fall from >3 ft or > 5 stairs): No Recommendation: Consider CT. The [place] Head CT Rule cannot rule out need for Imaging. <Alberto Urrutia DO - Last Filed: 02/10/22 03:35> [place] CT Head Rule Exclusion: Patient NOT Excluded, Proceed to next steps Recommendation: Consider CT. The [place] Head CT Rule cannot rule out need for Imaging. Course <JEANNE Rivera - Last Filed: 02/05/22 15:52> Orders Ordered: Discontinued Medications Acetaminophen (Acetaminophen 325 Mg Tablet) 650 mg PO NOW ONE Stop: 02/05/22 14:19 Last Admin: 02/05/22 15:01 Dose: Not Given Documented by: YOVANI Cyclobenzaprine HCl (Cyclobenzaprine 10 Mg Tablet) 10 mg PO NOW ONE Stop: 02/05/22 15:04 Last Admin: 02/05/22 15:18 Dose: Not Given Documented by: YOVANI Lidocaine (Lidocaine Patch 1 Each Adh..Patch) 1 each TOP NOW ONE Stop: 02/05/22 14:19 Last Admin: 02/05/22 15:05 Dose: 1 each Documented by: YOVANI Methocarbamol (Methocarbamol 500 Mg Tablet) 500 mg PO NOW ONE Stop: 02/05/22 14:19 Last Admin: 02/05/22 15:05 Dose: Not Given Documented by: YOVANI Ondansetron HCl (Ondansetron 4 Mg Odt) 4 mg SL NOW ONE Stop: 02/05/22 14:20 Last Admin: 02/05/22 15:05 Dose: 4 mg Documented by: YOVANI Vital Signs Vital signs: Vital Signs - 8 hr 02/05/22 11:40 02/05/22 13:50 02/05/22 15:23 Temperature 97.6 F Pulse Rate 71 76 74 Respiratory Rate 14 Blood Pressure 119/81 146/72 H 156/74 H Pulse Oximetry 99 97 96 <Alberto Urrutia DO - Last Filed: 02/10/22 03:35> Orders Ordered: Discontinued Medications Acetaminophen (Acetaminophen 325 Mg Tablet) 650 mg PO NOW ONE Stop: 02/05/22 14:19 Last Admin: 02/05/22 15:01 Dose: Not Given Documented by: YOVANI Cyclobenzaprine HCl (Cyclobenzaprine 10 Mg Tablet) 10 mg PO NOW ONE Stop: 02/05/22 15:04 Last Admin: 02/05/22 15:18 Dose: Not Given Documented by: YOVANI Lidocaine (Lidocaine Patch 1 Each Adh..Patch) 1 each TOP NOW ONE Stop: 02/05/22 14:19 Last Admin: 02/05/22 15:05 Dose: 1 each Documented by: YOVANI Methocarbamol (Methocarbamol 500 Mg Tablet) 500 mg PO NOW ONE Stop: 02/05/22 14:19 Last Admin: 02/05/22 15:05 Dose: Not Given Documented by: YOVANI Ondansetron HCl (Ondansetron 4 Mg Odt) 4 mg SL NOW ONE Stop: 02/05/22 14:20 Last Admin: 02/05/22 15:05 Dose: 4 mg Documented by: YOVANI Vital Signs Vital signs: Vital Signs - 8 hr 02/05/22 11:40 02/05/22 13:50 02/05/22 15:23 Temperature 97.6 F Pulse Rate 71 76 74 Respiratory Rate 14 Blood Pressure 119/81 146/72 H 156/74 H Pulse Oximetry 99 97 96 MDM - Headache <RAMONITA RiveraP - Last Filed: 02/05/22 15:52> [facility] Narrative Medical decision making narrative: This is a pleasant 81-year-old female who presents to the emergency department for ongoing headache after close head injury last evening. Patient has right footdrop from previous back surgery, pre-existing balance issues, states that she was running after the CT and tripped fell forward striking the left side head chair or the floor. She denies loss of consciousness, vision changes, vomiting but endorses nausea with a headache since last night. She states she took Tylenol and this helped with her headache. She was supposed to have an epidural for her left neck pain today, this was canceled. She endorses left- sided neck and muscle tension this is likely exacerbated from her pre-existing condition. She endorses taking a Flexeril this morning which did help some, she went to urgent care this morning and came to the emergency department after recommendation for possible CT imaging. Unfortunately the CT scanner is down today, I am unable to do a CT of her brain, head, and C-spine. She was nontender to palpation along her cervical vertebrae, she endorses nausea with a headache approximately 3/10 today. She denies any vision changes, memory issues, endorses difficulty concentrating, some fatigue, and photophobia. Patient likely has a concussion, she has a mild tender lump on the left temporal region, some jaw pain with opening and closing her jaw. She likely also has the TMJ sprain. Discussed concussion protocol and resting until symptoms go way, she was given Tylenol, lidocaine patch, and Flexeril in the emergency department for her symptoms, encouraged her to rest at home, return to the emergency d epartment for any vomiting, vision changes, memory loss, weakness, or new sensation changes. She was given strict return precautions, discussed this fully, encouraged her to rest until her symptoms improve. Patient is appropriate and amenable to discharge home. Vital signs are stable on repeat examination is unremarkable. Patient has been informed of results. Patient has been given strict return to ER precautions for any new or worsening symptoms. Patient understands to follow up closely with outpatient providers as instructed. Patient understands plan and agrees to discharge home. All questions and concerns answered at this time. Discharge Plan Departure Patient Disposition: Home Clinical Impression: Closed head injury Qualifiers: Encounter type: initial encounter Qualified Code(s): S09.90XA - Unspecified injury of head, initial encounter Sprain of temporomandibular joint Qualifiers: Encounter type: initial encounter Qualified Code(s): S03.40XA - Sprain of jaw, unspecified side, initial encounter Concussion Qualifiers: Encounter type: initial encounter Loss of consciousness presence/duration: without LOC Qualified Code(s): S06.0X0A - Concussion without loss of consciousness, initial encounter Instructions: Concussion, Closed Head Injury Activity Restrictions/Additional Instructions: *You have been diagnosed with a close head injury and a concussion. Please listen to your body, if you have a headache, fatigue, difficulty concentrating, are bothered by light and sound, please rest and turn off that stimulation that brought on your pain. It is okay to nap frequently if your tired, you do not need to wake herself up if you are resting. If you start vomiting, please return to the emergency department and go to one with a CT scanner that is working. The ambulance may need to call to verify it is up and running if you do need to come in. If you have any changes to your vision, difficulty walking, have worsening head or neck pain and your not able to reduce that pain with Tylenol them please come back to the emergency department. Thank you for trusting us with your care, I am sorry for your long wait and for the equipment malfunction. For your left shoulder and neck pain, used your Voltaren gel, lidocaine patches can be helpful as well, use a muscle relaxer as needed, this will make you tired, take Tylenol every 6 hours for your pain. Please schedule follow-up with Dr. Alexander if you have an ongoing headache beyond today. *What to do: *Please continue to take your regular medications as directed. [ x] New medication prescriptions sent to your pharmacy: [ [facility]] [ ] New medication written as a paper prescription [ ] No new medications given *Please follow up with your primary care provider in 2-3 days, call for an appointment. Let them know you were seen in the Emergency Department and that we asked that you be seen for follow-up. We will electronically transmit a record of today's note if your PCP is in our system *If you do not have a primary care provider please contact [phone] to establish care with one of [facility] primary care providers. *Return to Emergency Department if you should have any new, worsening or concerning symptoms, such as [fever greater than 101F, chills, worsening pain, persistent vomiting or other bothersome symptoms] Prescriptions: New methocarbamol 500 mg tablet 500 mg PO TID PRN (Reason: muscle spasm) Qty: 20 0RF lidocaine [Lidoderm] 5 % adhesive patch,medicated 1 patch topical DAILY PRN (Reason: pain) Qty: 15 0RF Rx Instructions: leave on most painful area for up to 12 hrs ondansetron 4 mg tablet,disintegrating 4 mg PO Q8H PRN (Reason: nausea and vomiting) Qty: 10 0RF cyclobenzaprine 5 mg tablet 5 mg PO DAILY PRN (Reason: muscle spasm) Qty: 20 0RF No Action itjczqkxqorq-[id number]-tpbyty Tablet 1 tab PO DAILY 0RF phenazopyridine [Pyridium] 200 mg tablet 200 mg PO TID 0 Days Qty: 6 0RF buspirone 5 mg tablet 5 mg PO BID Qty: 60 1RF aspirin 81 MG tablet,delayed release (DR/EC) 81 mg PO QDAY Qty: 0 0RF albuterol sulfate [Ventolin HFA] 90 mcg/actuation HFA aerosol inhaler 2 puff inhalation Q4HP PRN (Reason: shortness of breath or wheezing) Qty: 1 6RF Qvar RediHaler 80 mcg/actuation HFA aerosol breath activated 1 inh INHALATION QAM Qty: 10.6 5RF losartan 50 mg tablet 50 mg PO DAILY Qty: 90 3RF acetaminophen-codeine 300-15 mg tablet 1 tab PO Q4H PRN (Reason: pain) Qty: 20 0RF Label Comments: pt has not taken in a while acetaminophen 650 mg Tablet 650 mg PO Q4H PRN (Reason: Pain (Scale Score 4-6)) 0RF Referrals: Archie Alexander MD [Primary Care Provider] - <Alberto Urrutia DO - Last Filed: 02/10/22 03:35> [facility] [place] Attestation: I was immediately available in the department for consultation. This documentation has been reviewed and I agree with assessment and plan. Supervised by Alberto Urrutia DO
[2022-02-05] MEDS: ONDANSETRON 4 MG ODT SL (15:05)
[2022-02-05] MEDS: LIDOCAINE PATCH 1 EACH ADH..PATCH TOP (15:05)
[2022-02-05 15:23] VITALS: BP 156/74; PULSE 74; O2SAT 96
--- NOTE | 2022-02-05 15:47 | PC.NURSE ---
1355: Pt reports a hx of balance problems. She reports falling last night at 6pm and hit the left side of her head and left shoulder. She denies LOC. Was taken 81mg aspirin daily, but stopped for the last week due to an upcoming procedure. Pt reports hx of left shoulder pain. Pain in head is 3/10 and tender to touch. Reports nausea. Call light within reach.
== END 2022-02-05 15:24 | disposition home or self-care (01) ==
PROVIDERS: Emergency Provider Nurse Practitioner Critical Care Medicine; PCP Family Medicine
DX: S06.0X0A Concussion without loss of consciousness, initial encounter (principal); S03.40XA Sprain of jaw, unspecified side, initial encounter; R11.0 Nausea; W19.XXXA Unspecified fall, initial encounter
CPT/HCPCS: 99283

== ENCOUNTER → 2022-08-09 09:09 | Outpatient (CLI) | payer MEDICARE, OTHER, SELFPAY ==
[2022-08-09 10:52] LABS: Alanine Aminotransferase 14 IU/L (<35); Albumin 3.6 g/dL (3.5-5.0); Albumin Globulin Ratio 1.4 (1.0-2.8); Alkaline Phosphatase 85 U/L (38-126); Aspartate Aminotransferase 28 IU/L (14-36); BUN Creatinine Ratio 15.5 (6-22); Bilirubin Total 0.4 mg/dL (0.2-1.3); Blood Urea Nitrogen 13 mg/dL (7-17); Calcium 9.6 mg/dL (8.4-10.2); Carbon Dioxide 25 mmol/L (22-32); Chloride 108 mmol/L (98-107); Estimated Glomerular Filt Rate > 60 mL/min (>60); Globulin 2.5 g/dL (1.7-4.1); Glucose 110 mg/dL (80-110); HEMOLYSIS < 15 (0-50); Phosphorous 3.6 mg/dL (2.8-4.1); Potassium 4.2 mmol/L (3.4-5.1); Sodium 140 mmol/L (137-145); Total Protein 6.1 g/dL (6.3-8.2)
[2022-08-09 12:41] LABS: Creatinine Urine Random 39.5 mg/dL
[2022-08-09 12:43] LABS: Microalbumi Creatinin Ratio Ur 422.7 ug/mg CR (<30); Microalbumin Urine Random 16.7 mg/dL (0-1.6)
[2022-08-11 06:36] LABS: Calcium 9.8 mg/dL (8.7-10.3); Parathyroid Hormone, Intact 39 pg/mL (15-65)
[2022-08-18 15:40] LABS: 1,25-Dihydroxy, Vitamin D-2 <10 pg/mL (.); 25 hydroxy Vitamin D 2 <1.0 ng/mL (.); 25 hydroxy Vitamin D3 49 ng/mL (.)
== END ==
PROVIDERS: PCP Family Medicine; Referring Provider Internal Medicine Nephrology; Visit Provider Internal Medicine Nephrology
DX: N18.30 Chronic kidney disease, stage 3 unspecified (principal); R80.1 Persistent proteinuria, unspecified
CPT/HCPCS: 36415; 80053; 82043; 82306; 82310; 82570; 82652; 83970; 84100

== ENCOUNTER → 2022-10-29 08:37 | Outpatient (CLI) | payer MEDICARE, OTHER, SELFPAY ==
--- NOTE | 2022-10-29 | DI.MRI.S_ITS ---
PROCEDURE: MR SHOULDER RT WO CON INDICATIONS: Pain in right shoulder TECHNIQUE: Noncontrast oblique coronal T2 fast spin echo with fat saturation, oblique sagittal T1 spin echo and T2 fast spin echo with fat saturation, axial T1 spin echo and T2 fast spin echo with fat saturation through the shoulder. COMPARISON: None. FINDINGS: Image quality: Diagnostic, patient motion is noted. Rotator cuff: Full-thickness rupture of distal supraspinatus and infraspinatus at their insertion on the humeral head is seen with up to 5 centimeter medial retraction of torn tendon fibers to the level of glenoid. Distal subscapularis tendinosis and low-grade intrasubstance partial-thickness tear is also seen. Sagittal images demonstrate moderate to severe supraspinatus muscle atrophy. Bones and bursae: Moderate acromioclavicular joint osteoarthritic changes are seen. Moderate to severe glenohumeral joint osteoarthritic changes also noted. There is large joint effusion and subacromial subdeltoid bursal fluid. No gross loose bodies.. Capsule and soft tissues: There is suggestion of extensive superior labral tear extending from 11-1 o'clock position. The long head of the biceps tendon is not visualized intra-articularly. The rotator interval appears normal, without fibrosis. The coracohumeral ligament is normal in thickness. IMPRESSION: 1. Full-thickness rupture of distal supraspinatus and infraspinatus at their insertion on the humeral head with up to 5 centimeter medial retraction of torn tendon fibers to the level of glenoid. Distal subscapularis tendinosis and low-grade intrasubstance partial-thickness tear. Moderate to severe supraspinatus muscle atrophy. 2. Moderate acromioclavicular joint osteoarthritis and moderate to severe glenohumeral joint osteoarthritis. Large joint effusion and subacromial subdeltoid bursal fluid. No gross loose bodies. 3. Extensive superior labral tear extending from 11-1 o'clock position. 4. Suggestion of torn intra-articular portion of long head of biceps tendon with distal retraction of torn biceps tendon fibers to the level of humeral head. Dictated by: Abdifatah Brice M.D. on 10/29/2022 at 9:48 Approved by: Abdifatah Brice M.D. on 10/29/2022 at 9:51
== END ==
PROVIDERS: PCP Family Medicine; Referring Provider Orthopaedic Surgery; Visit Provider Orthopaedic Surgery
DX: M75.121 Complete rotator cuff tear or rupture of right shoulder, not specified as traumatic; S43.491A Other sprain of right shoulder joint, initial encounter; M25.511 Pain in right shoulder; M19.011 Primary osteoarthritis, right shoulder; M25.411 Effusion, right shoulder
CPT/HCPCS: 73221

== ENCOUNTER → 2022-12-09 07:40 | Outpatient (CLI) | payer MEDICARE, OTHER, SELFPAY ==
--- NOTE | 2022-12-09 07:43 | DI.RAD.S_ITS ---
PROCEDURE: XR HIP W PEL IF DONE JOSE MIN 4V INDICATIONS: Left hip pain suspect OA hx of surgery on LS spine TECHNIQUE: AP pelvis with lateral view(s) of the bilateral hip(s). COMPARISON: None. FINDINGS: Bones: No fractures or dislocations. Pelvic ring appears intact. No suspicious bony lesions. Lower lumbar fusion. Moderate bilateral degenerative hip joint space narrowing. No erosions. Soft tissues: The visualized bowel gas pattern is normal. No suspicious soft tissue calcifications. IMPRESSION: Bilateral hip arthritis as above. Dictated by: Anila Acevedo M.D. on 12/09/2022 at 13:26 Approved by: Anila Acevedo M.D. on 12/09/2022 at 13:27
[2022-12-09 08:20] LABS: Add Manual Diff / Slide Review NO; Basophils Absolute Auto 100 /uL (0-100); Basophils Percent Auto 0.9 % (0-2); Eosinophils Absolute Auto 200 /uL (0-450); Eosinophils Percent Auto 4.3 % (2-4); Hematocrit 43.8 % (36-46); Hemoglobin 14.4 g/dL (12.0-16.0); Lymphocytes Absolute Auto 1600 /uL (1100-4500); Lymphocytes Percent Auto 27.5 % (25-40); Mean Corpuscular HGB Conc 32.9 % (30-36); Mean Corpuscular Hemoglobin 29.2 PG (26-34); Mean Corpuscular Volume 88.8 fL (80-100); Monocytes Absolute Auto 500 /uL (0-900); Monocytes Percent Auto 7.9 % (3-14); Neutrophils Absolute Auto 3400 /uL (1500-7000); Neutrophils Percent Auto 59.4 % (50-75); Platelet Count 239 X10^3/uL (150-400); Red Blood Cell Count 4.93 X10^6/uL (4.0-5.2); Red Cell Distribution Width 13.5 % (11.6-14.8); White Blood Cell Count 5.8 X10^3/uL (4.5-11.0)
[2022-12-09 08:45] LABS: HEMOLYSIS < 15 (0-50); Iron 138 ug/dL (37-170)
[2022-12-09 08:58] LABS: Percent Iron Saturation 51 % (15-50); Total Iron Binding Capacity 269 ug/dL (265-497); Transferrin 210 mg/dL (206-381)
[2022-12-09 09:17] LABS: TSH w/ Reflex to FT4 2.38 uIU/mL (0.47-4.68)
[2022-12-09 09:34] LABS: Vitamin B12 537 pg/mL (239-931)
== END ==
PROVIDERS: PCP Family Medicine; Referring Provider Physician Assistant; Visit Provider Physician Assistant
DX: M25.552 Pain in left hip (principal); R53.83 Other fatigue; M16.0 Bilateral primary osteoarthritis of hip
CPT/HCPCS: 36415; 73522; 82607; 83540; 83550; 84443; 85025

== ENCOUNTER → 2022-12-20 07:17 | Outpatient (CLI) | payer MEDICARE, OTHER, SELFPAY ==
[2022-12-20 08:18] LABS: Cholesterol 250 mg/dL (140-199); HDL Cholesterol 60 mg/dL (40-60); LDL Cholesterol Calculated 153 mg/dL (<100); Triglycerides 183 mg/dL (35-150)
== END ==
PROVIDERS: PCP Family Medicine; Referring Provider Family Medicine; Visit Provider Family Medicine
DX: E78.5 Hyperlipidemia, unspecified (principal)
CPT/HCPCS: 36415; 80061

== ENCOUNTER → 2022-12-25 11:19 | Outpatient (CLI) | payer MEDICARE, OTHER, SELFPAY ==
[2022-12-25 13:15] LABS: BUN Creatinine Ratio 21.2 (6-22); Blood Urea Nitrogen 18 mg/dL (7-17); Calcium 9.4 mg/dL (8.4-10.2); Carbon Dioxide 28 mmol/L (22-32); Chloride 102 mmol/L (98-107); Estimated Glomerular Filt Rate > 60 mL/min (>60); Glucose 107 mg/dL (80-110); HEMOLYSIS < 15 (0-50); Potassium 4.6 mmol/L (3.4-5.1); Sodium 137 mmol/L (137-145)
== END ==
PROVIDERS: PCP Family Medicine; Referring Provider Nurse Practitioner Family; Visit Provider Nurse Practitioner Family
DX: N39.0 Urinary tract infection, site not specified (principal)
CPT/HCPCS: 36415; 80048

== ENCOUNTER → 2023-02-13 12:39 | Outpatient (CLI) | payer MEDICARE, OTHER, SELFPAY ==
--- NOTE | 2023-02-13 12:40 | DI.RAD.S_ITS ---
PROCEDURE: FL BARIUM SWALLOW INDICATIONS: severe GERD; nausea; decreased appetite COMPARISON: None. FINDINGS: Function: There is mild esophageal dysmotility. No elicited gastroesophageal reflux. There is normal transit of a calibrated barium tablet through the esophagus into the stomach. Morphology: Air-contrast images demonstrate normal mucosal morphology. Single contrast views show no esophageal strictures, extrinsic mass effects, or diverticula. Limited images of the stomach demonstrate normal appearance. IMPRESSION: 1. Mild esophageal dysmotility. 2. No gastroesophageal reflux was elicited during the examination. Dictated by: Ramon Richardson M.D. on 02/13/2023 at 15:30 Approved by: Ramon Richardson M.D. on 02/13/2023 at 15:34
== END ==
PROVIDERS: PCP Family Medicine; Referring Provider Physician Assistant; Visit Provider Physician Assistant
DX: K22.4 Dyskinesia of esophagus (principal); K21.9 Gastro-esophageal reflux disease without esophagitis; N18.9 Chronic kidney disease, unspecified
CPT/HCPCS: 74220

== ENCOUNTER → 2023-02-17 10:08 | Outpatient (CLI) | payer MEDICARE, OTHER, SELFPAY ==
[2023-02-17 12:58] LABS: Alanine Aminotransferase 17 IU/L (<35); Albumin 3.7 g/dL (3.5-5.0); Albumin Globulin Ratio 1.3 (1.0-2.8); Alkaline Phosphatase 96 U/L (38-126); Aspartate Aminotransferase 32 IU/L (14-36); BUN Creatinine Ratio 18.5 (6-22); Bilirubin Total 0.3 mg/dL (0.2-1.3); Blood Urea Nitrogen 17 mg/dL (7-17); Calcium 9.6 mg/dL (8.4-10.2); Carbon Dioxide 32 mmol/L (22-32); Chloride 102 mmol/L (98-107); Estimated Glomerular Filt Rate > 60 mL/min (>60); Globulin 2.9 g/dL (1.7-4.1); Glucose 88 mg/dL (80-110); HEMOLYSIS < 15 (0-50); Potassium 3.8 mmol/L (3.4-5.1); Sodium 139 mmol/L (137-145); Total Protein 6.6 g/dL (6.3-8.2)
[2023-02-17 16:26] LABS: Creatinine Urine Random 32.4 mg/dL; Protein (Total) Urine Random 14 mg/dL (0-12); Protein Creatinine Ratio Urine 0.43 GRAM/24H
[2023-02-17 16:40] LABS: Vitamin D 25 Hydroxy (D3) 37.6 ng/mL (30.0-100.0)
[2023-02-20 10:55] LABS: Calcium 8.4 mg/dL (8.7-10.3); Parathyroid Hormone, Intact 43 pg/mL (15-65)
[2023-03-02 15:41] LABS: 1,25-Dihydroxy, Vitamin D-2 <10 pg/mL (.)
== END ==
PROVIDERS: PCP Family Medicine; Referring Provider Internal Medicine Nephrology; Visit Provider Internal Medicine Nephrology
DX: N18.30 Chronic kidney disease, stage 3 unspecified (principal)
CPT/HCPCS: 36415; 80053; 82306; 82310; 82570; 82652; 83970; 84156

== ENCOUNTER → 2023-04-04 11:10 | Outpatient (CLI) | payer MEDICARE, OTHER, SELFPAY ==
--- NOTE | 2023-04-04 11:11 | DI.US.S_ITS ---
PROCEDURE: US ABDOMEN COMPLETE INDICATIONS: EPIGASTRIC PAIN TECHNIQUE: Real-time scanning was performed of the abdominal and retroperitoneal organs, with image documentation. COMPARISON: [facility], US, ABDOMEN COMPLETE, 05/29/2016, 8:22. FINDINGS: Liver: Liver is diffusely increased in echogenicity. No focal hepatic abnormalities identified. Normal hepatic size. Gallbladder: No gallstones identified. Normal gallbladder wall. No pericholecystic fluid. Negative sonographic Lebron sign. Biliary ducts: Intrahepatic bile ducts are non-dilated. Extrahepatic bile duct caliber measures 9 mm. Normal is 6-7 mm or less in diameter, or 10 mm or less post-cholecystectomy. Pancreas: Visualized portions of the pancreas are sonographically normal. Spleen: Spleen is normal in size and homogeneous in echotexture. Kidneys: Kidneys are normal in size and echotexture. Right kidney measures 7.9 cm long; left kidney measures 8.1 cm long. No hydronephrosis or nephrolithiasis. No solid masses. Aorta: Visualized aorta is normal in caliber at less than 3 cm. Iliacs: Proximal common iliac arteries are normal in caliber at less than 2.5 cm. IVC: Intrahepatic inferior vena cava is patent. Miscellaneous: No free abdominal fluid. IMPRESSION: 1. Mildly increased hepatic echogenicity noted possibly related to hepatic steatosis but other sources of hepatocellular disease cannot be excluded. Recommend clinical correlation. 2. Prominence of the extrahepatic bile duct at 9 mm. Recommend correlation with LFTs. Dictated by: Ishan DANIEL Interpreted: Anila Acevedo MD on 04/04/2023 at 12:08 Transcribed by: KERA on 04/04/2023 at 12:10 Approved by: Anila Acevedo M.D. on 04/04/2023 at 13:06
--- NOTE | 2023-04-04 11:11 | DI.RAD.S_ITS ---
PROCEDURE: XR CHEST 2V INDICATIONS: Left-sided chest pain TECHNIQUE: 2 views of the chest were acquired. COMPARISON: [facility], , CHEST 2 VIEW, 10/06/2017, 7:44. FINDINGS: Surgical changes and devices: Lower cervical spine fixation hardware incompletely evaluated. Lungs and pleura: Lungs are clear, aside from mild scarring at the left lung base which is unchanged. No pleural effusions or pneumothorax. Mediastinum: Mediastinal contours are normal. Heart size is normal. Bones and chest wall: No suspicious bony abnormalities. Soft tissues appear unremarkable. IMPRESSION: No significant change in mild scarring at the left lung base; otherwise no source for chest pain is identified radiographically. Dictated by: Ishan Bright Leighton Interpreted: Anila Acevedo MD on 04/04/2023 at 11:54 Transcribed by: KERA on 04/04/2023 at 11:55 Approved by: Anila Acevedo M.D. on 04/04/2023 at 13:06
== END ==
PROVIDERS: PCP Family Medicine; Referring Provider Physician Assistant; Visit Provider Physician Assistant
DX: R10.13 Epigastric pain (principal); R07.9 Chest pain, unspecified
CPT/HCPCS: 71046; 76700

== ENCOUNTER → 2024-03-03 16:13 | Outpatient (CLI) | payer MEDICARE, OTHER, SELFPAY ==
--- NOTE | 2024-03-03 16:15 | DI.RAD.S_ITS ---
PROCEDURE: XR CHEST 2V INDICATIONS: Persistent cough; possible pneumonia TECHNIQUE: 2 views of the chest were acquired. COMPARISON: [facility], , XR CHEST 2V, 04/04/2023, 11:08. FINDINGS: Surgical changes and devices: Spinal instrumentation in the lower lumbar and lower cervical spine noted Lungs and pleura: Lungs are clear. No pleural effusions or pneumothorax. Mediastinum: Mediastinal contours are normal. Heart size is normal. Bones and chest wall: No suspicious bony abnormalities. Soft tissues appear unremarkable. IMPRESSION: No acute cardiopulmonary abnormality is seen. Approved by: Forrest Veliz M.D. on 03/04/2024 at 18:50
== END ==
PROVIDERS: PCP Family Medicine; Referring Provider Physician Assistant; Visit Provider Physician Assistant
DX: R05.9 Cough, unspecified (principal)
CPT/HCPCS: 71046

== ENCOUNTER → 2024-08-02 15:11 | Outpatient (CLI) | payer MEDICARE, OTHER, SELFPAY ==
--- NOTE | 2024-08-02 15:12 | DI.RAD.S_ITS ---
PROCEDURE: XR RIBS LT MIN 3V W CXR1V INDICATIONS: Left rib pain anterior TECHNIQUE: 2 views of the ribs were acquired, along with a single view chest. COMPARISON: None. FINDINGS: Surgical changes and devices: ACDF and lumbar surgical fusion. Bones and chest wall: No fractures or dislocations. No suspicious bony lesions. Overlying soft tissues appear unremarkable. Lungs and pleura: No pleural effusions or pneumothorax. Lungs appear clear. Mediastinum: Mediastinal contours appear normal. Heart size is normal. IMPRESSION: No displaced rib fracture or pneumothorax. Dictated by: Carlos Ross M.D. on 08/02/2024 at 16:17 Approved by: Carlos Ross M.D. on 08/02/2024 at 16:18
== END ==
PROVIDERS: PCP Family Medicine; Referring Provider Nurse Practitioner Family; Visit Provider Nurse Practitioner Family
DX: R07.81 Pleurodynia (principal); Z98.1 Arthrodesis status
CPT/HCPCS: 71101

== ENCOUNTER → 2024-08-12 10:17 | Outpatient (CLI) | payer MEDICARE, OTHER, SELFPAY ==
--- NOTE | 2024-08-12 10:19 | DI.ECHO.S_ITS ---
[facility]---------+ [facility] : : [address] : : [place] : : [id number] : : Phone: [phone] Echocardiogram Report + + :Name: CB GONZALEZ Study Date: 08/12/2024 Height: 62 in : :Hospital ReadingLocation: Weight: 142 lb : : Gender: Female BSA: 1.7 m2 : :: 1940 Age: 84 yrs BP: 130/80 mmHg: :Reason For Study: LEFT SIDED CHEST PAIN, EKG CHANGES : :Ordering Physician: MULU, : :KEHINDE Fortune Performed By: Brittney Veras : :Referring: KEHINDE HARDWICK : + + Interpretation Summary The left ventricle is normal in size and wall thickness. The left ventricular ejection fraction is normal. The ejection fraction is estimated to be 60-65%. The right ventricle is normal in size and function. No significant valvular pathology seen. The IVC is of normal diameter and collapses greater than 50% with a sniff. This suggests a low right atrial pressure of 3 mm Hg. Procedure: A two-dimensional transthoracic echocardiogram with color flow and Doppler was performed. The study quality was technically adequate. There is no prior echocardiogram noted for this patient. The patient was in sinus bradycardia with heart rates between 52-63 bpm during the exam. Left Ventricle: The left ventricle is normal in size and wall thickness. There is no thrombus. The ejection fraction is estimated to be 60-65%. The left ventricular ejection fraction is normal. There are no focal wall motion abnormalities. No significant diastolic dysfunction. Right Ventricle: The right ventricle is normal in size and function. Atria: The left atrium is borderline dilated. Right atrial size is normal. There is no Doppler evidence for an interatrial shunt. Mitral Valve: The mitral valve leaflets appear to open well. There is mild mitral annular calcification. There is trace mitral regurgitation. Aortic Valve: The aortic valve is trileaflet. The aortic valve opens well. There is no aortic valve stenosis. No aortic regurgitation is present. Tricuspid Valve: The tricuspid valve is normal in structure and function. There is trace tricuspid regurgitation. The right ventricular systolic pressure is estimated to be at least 25 mmHg based on an estimated right atrial pressure of 3 mm Hg. Pulmonic Valve: The pulmonic valve leaflets are thin and pliable; valve motion is normal. There is mild pulmonic regurgitation. Great Vessels: The aortic root is normal size. The dimensions of the ascending aorta are normal. The IVC is of normal diameter and collapses greater than 50% with a sniff. This suggests a low right atrial pressure of 3 mm Hg. Pericardium/ Pleura There is no pericardial effusion. There is an anterior echo-free space consistent with a fat pad. There is no pleural effusion. MMode/2D Measurements & Calculations LVIDd: 4.4 cm LVOT diam: 2.0 cm LVIDs: 2.6 cm Ao root diam: 3.0 cm FS: 40.3 % asc Aorta Diam: 3.2 cm EPSS: 0.42 cm Ao Arch Diam (Prox Trans): 2.3 cm IVSd: 0.74 cm LVPWd: 0.79 cm LV perez. diameter/BSA (cm/m^2): 2.7 LV sys. diameter/BSA (cm/m^2): 1.6 LA A2 area: 19.1 cm2 RA long axis: 4.6 cm LA A4 area: 16.8 cm2 RA area: 14.7 cm2 LA length (vol): 4.9 cm RA vol: 40.2 ml LA vol: 55.9 ml RA : 24.3 ml/m2 LA vol index: 33.8 ml/m2 IVC diam: 2.0 cm RVD1 (basal): 3.0 cm RVD2 (mid): 2.6 cm TAPSE: 2.2 cm Doppler Measurements & Calculations Ao V2 max: 126.7 cm/sec LVOT Max Hollis: 106.1 cm/sec Ao V2 mean: 83.4 cm/sec LV V1 max P.5 mmHg Ao max P.4 mmHg LV V1 VTI: 23.4 cm Ao mean P.1 mmHg TED(I,D): 2.7 cm2 Ao V2 VTI: 26.4 cm TED(V,D): 2.5 cm2 sev ratio: 0.89 TED indexed to BSA (cm^2/m^2): 1.6 MV E max hollis: 68.7 cm/sec TR max hollis: 233.4 cm/sec MV A max hollis: 65.8 cm/sec TR max P.8 mmHg MV E/A: 1.0 PA V2 max: 89.9 cm/sec Med Peak E' Hollis: 7.3 cm/sec PA V2 mean: 62.4 cm/sec E/E' med: 9.4 PA mean P.7 mmHg Lat Peak E' Hollis: 7.0 cm/sec PA pr(Accel): 15.6 mmHg E/E' lat: 9.9 E/e' average: 9.7 MV dec time: 0.20 sec SV(LVOT): 70.1 ml Reading Physician:03:24 PM
== END ==
PROVIDERS: PCP Family Medicine; Referring Provider Physician Assistant; Visit Provider Physician Assistant
DX: Z01.818 Encounter for other preprocedural examination (principal); I34.81 Nonrheumatic mitral (valve) annulus calcification; I37.1 Nonrheumatic pulmonary valve insufficiency; R94.31 Abnormal electrocardiogram [ECG] [EKG]; R07.9 Chest pain, unspecified; R53.83 Other fatigue; R01.1 Cardiac murmur, unspecified; Z68.26 Body mass index [BMI] 26.0-26.9, adult
CPT/HCPCS: 93005; 93306

== ENCOUNTER → 2024-08-16 06:57 | Outpatient (CLI) | payer MEDICARE, OTHER, SELFPAY ==
[2024-08-16 08:25] LABS: Add Manual Diff / Slide Review NO; Basophils Absolute Auto 0 /uL (0-100); Basophils Percent Auto 0.9 % (0-2); Eosinophils Absolute Auto 300 /uL (0-450); Eosinophils Percent Auto 5.7 % (2-4); Hematocrit 43.2 % (36-46); Hemoglobin 14.1 g/dL (12.0-16.0); Lymphocytes Absolute Auto 1400 /uL (1100-4500); Lymphocytes Percent Auto 25.5 % (25-40); Mean Corpuscular HGB Conc 32.7 % (30-36); Mean Corpuscular Hemoglobin 29.1 PG (26-34); Mean Corpuscular Volume 88.9 fL (80-100); Monocytes Absolute Auto 500 /uL (0-900); Monocytes Percent Auto 9.4 % (3-14); Neutrophils Absolute Auto 3200 /uL (1500-7000); Neutrophils Percent Auto 58.5 % (50-75); Platelet Count 235 X10^3/uL (150-400); Red Blood Cell Count 4.86 X10^6/uL (4.0-5.2); Red Cell Distribution Width 13.5 % (11.6-14.8); White Blood Cell Count 5.5 X10^3/uL (4.5-11.0)
[2024-08-16 08:57] LABS: Alanine Aminotransferase 13 IU/L (<35); Albumin 3.7 g/dL (3.5-5.0); Albumin Globulin Ratio 1.4 (1.0-2.8); Alkaline Phosphatase 108 U/L (38-126); Aspartate Aminotransferase 34 IU/L (14-36); BUN Creatinine Ratio 25.8 (6-22); Bilirubin Total 0.7 mg/dL (0.2-1.3); Blood Urea Nitrogen 24 mg/dL (7-17); Calcium 10.1 mg/dL (8.4-10.2); Carbon Dioxide 27 mmol/L (22-32); Chloride 107 mmol/L (98-107); Cholesterol 264 mg/dL (140-199); Estimated Glomerular Filt Rate 60 mL/min (>60); Globulin 2.6 g/dL (1.7-4.1); Glucose 88 mg/dL (80-110); HDL Cholesterol 60 mg/dL (40-60); HEMOLYSIS < 15 (0-50); LDL Cholesterol Calculated 155 mg/dL (<100); Potassium 4.3 mmol/L (3.4-5.1); Sodium 138 mmol/L (137-145); Total Protein 6.3 g/dL (6.3-8.2); Triglycerides 243 mg/dL (35-150)
[2024-08-16 09:09] LABS: Vitamin D 25 Hydroxy (D3) 47.3 ng/mL (30.0-100.0)
[2024-08-16 09:24] LABS: TSH w/ Reflex to FT4 1.68 uIU/mL (0.47-4.68)
[2024-08-16 09:43] LABS: Vitamin B12 653 pg/mL (239-931)
== END ==
PROVIDERS: PCP Family Medicine; Referring Provider Physician Assistant; Visit Provider Physician Assistant
DX: R53.83 Other fatigue (principal); E78.5 Hyperlipidemia, unspecified; E55.9 Vitamin D deficiency, unspecified; N18.9 Chronic kidney disease, unspecified; R07.9 Chest pain, unspecified
CPT/HCPCS: 36415; 80053; 80061; 82306; 82607; 84443; 85025

== ENCOUNTER → 2024-08-20 07:04 | Outpatient (CLI) | payer MEDICARE, OTHER, SELFPAY ==
--- NOTE | 2024-08-23 18:41 | DI.NM.S_ITS ---
DATE OF SERVICE: 08/20/2024 NUCLEAR CARDIOLOGY MYOCARDIAL PERFUSION STUDY PROCEDURE: Pharmacologic vasodilator stress and rest myocardial perfusion imaging with gating to assess ejection fraction and regional wall motion. ORDERING PROVIDER: LUISA Aguila. INDICATIONS: The patient is an 84-year-old female with an abnormal ECG and atypical chest discomfort who requires preoperative risk assessment. CARDIAC STRESS: Per protocol, 0.4 mg of regadenoson was infused with a normal heart rate response but minimal blood pressure change.She had moderate dyspnea and mid chest pressure. Her resting ECG shows sinus rhythm with some subtle ST and T-wave abnormalities that remain essentially unchanged with stress without any concerning ST- segment shifts. There were no arrhythmias. Her chest discomfort nearly resolved by the end of the study without aminophylline and was felt to unlikely represent angina. Per protocol, 24.8 millicuries of technetium-99m Myoview was injected and she was imaged 15 minutes later. Three days later while at rest, she was injected with 25.2 millicuries of technetium-99m Myoview and was imaged 15 minutes later, again using a gated SPECT acquisition protocol. FINDINGS: 1. Raw Data: There is fairly good myocardial tracer uptake with minimal breast shadows although with some evidence for diaphragmatic attenuation. The lung/heart ratio is normal at 0.26 with a normal TID ratio of 0.90. 2. Quantitated gated SPECT: Post-stress ejection fraction is 84% without any focal wall motion abnormality and specifically the inferolateral wall has normal contractility. The resting ejection fraction is 78% with a normal resting end-diastolic volume of 64 mL. 3. Myocardial perfusion imaging: Post-stress supine images show a fairly normal myocardial perfusion pattern although with a small, subtle defect in the mid to distal inferolateral wall that may reflect attenuation artifact but she was unable to lie prone to assess for this. Her resting images show an identical perfusion pattern with no clear improvement in the inferolateral defect. CONCLUSION: 1. Probable normal, low risk myocardial perfusion study. 2. Small, subtle fixed perfusion defect in the mid to distal inferolateral segment that likely represents attenuation artifact, but was unable to be assessed because of her inability to lie prone. While this could reflect a previous nontransmural myocardial infarction, absence of any wall motion abnormality in this distribution mitigates against this. There is no concerning myocardial ischemia. 3. Normal left ventricular systolic function without focal wall motion abnormality. 4. Mild chest discomfort with vasodilator stress but without significant ECG changes or perfusion abnormalities, and thus is nonspecific. Priscila Conde - MONTSE/fortunato/NEETU doc#: [id number]/job#: [id number] dd: 08/23/2024 17:17:00 dt: 08/23/2024 17:55:00 DICTATING MD/COPIES TO: Ra Khan MD; Karie Joyce, PAC COPIES MNE: CLAUDE;
== END ==
PROVIDERS: PCP Family Medicine; Referring Provider Physician Assistant; Visit Provider Physician Assistant
DX: R07.89 Other chest pain (principal); R94.31 Abnormal electrocardiogram [ECG] [EKG]
CPT/HCPCS: 78452; 93017; A9502; J2785

== ENCOUNTER 2024-09-06 04:36 | Emergency (ER) | payer MEDICARE, OTHER, SELFPAY ==
--- NOTE | 2024-09-06 04:40 | ED_ITS ---
HPI - General Adult General Chief complaint: Upper Respiratory Symptoms Stated complaint: possible sinus infection Time Seen by Provider: 09/06/24 04:39 Source: patient, RN notes reviewed and old records reviewed Mode of arrival: Ambulatory Limitations: no limitations History of Present Illness HPI narrative: 84-year-old female history of COPD presents with complaint of 5-6 days of initially left pain over the left sinus and radiating towards her ear which has become more persistent and painful. Patient states it shoots towards her ear but does not feel like it is in her inner ear. It feels like it is more anterior. She states that she had some itching over her scalp several days before but the itching has resolved. She did not notice a red spot on her scalp as well. She has not noticed any other rash or skin changes no other redness or swelling. She states no vision changes. No pain or blurry vision. No difficulty with movement. She does not have pain opening closing her mouth noticed 3 to did not tell discomfort. Denies any pain in her neck or elsewhere. Has not had similar symptoms in the past. She is on pregabalin for neuropathy issues in her feet but has not been taking it lately. Patient has been trying acetaminophen without any improvement. She was seen at the walk-in clinic on 09/03/2024 and prescribed Augmentin which he has been taking. She states the Tylenol seems to help for about 4 hours and then wear off but has not had any improvement on antibiotics. Reports an allergy to codeine but has had Columbus in the past. Also states that she does not tolerate it statins well. Related Data Home Medications Medication Instructions Recorded Confirmed betamethasone dipropionate 0.05 % 1 applic topical BID 02/12/24 09/03/24 topical ointment magnesium 250 mg tablet 250 mg PO DAILY 02/12/24 09/03/24 fluticasone propionate 50 1 spray intranasal DAILY PRN 06/15/24 09/03/24 mcg/actuation nasal allergy symptoms spray,suspension (Flonase Allergy Relief) multivitamin with minerals 1 tab PO DAILY 06/15/24 09/03/24 (Hair,Skin and Nails tablet) Previous Rx's Medication Instructions Recorded losartan 50 mg tablet 50 mg PO DAILY #90 tabs 04/02/23 albuterol sulfate 90 mcg/actuation 2 puff inhalation Q4-6H PRN 06/15/24 aerosol inhaler shortness of breath or wheezing #8.5 grams hydroxyzine HCl 25 mg tablet 25 mg PO BEDTIME PRN anxiety #30 06/15/24 tabs inhalational spacing device #1 ea 06/15/24 (BreatheRite MDI Spacer) pregabalin 25 mg capsule 25 mg PO TID #90 caps 08/17/24 amoxicillin 875 mg-potassium 1 tab PO Q12H 10 days #20 tabs 09/03/24 clavulanate 125 mg tablet acyclovir 800 mg tablet 800 mg PO 5XD 7 days #35 tabs 09/06/24 hydrocodone 5 mg-acetaminophen 325 1 tab PO Q6H PRN pain #10 tabs 09/06/24 mg tablet Allergies Allergy/AdvReac Type Severity Reaction Status Date / Time [id number] Reductase Allergy Severe swelling Verified 09/06/24 04:43 Inhibitor Sulfa (Sulfonamide Allergy Mild RASH Verified 09/06/24 04:43 Antibiotics) atorvastatin AdvReac Severe severe Verified 09/06/24 04:43 myalgia -ADMITTED TO ICU codeine AdvReac Mild N/V Verified 09/06/24 04:43 Review of Systems Review of Systems ROS Unobtainable: All systems reviewed & are unremarkable except as noted in HPI and below Patient History Medical History Gastric ulcer Postmenopausal Hemorrhoid Nausea Right upper quadrant pain COPD (chronic obstructive pulmonary disease) Urinary incontinence Anxiety Hayfever Asthma Hyperlipidemia Hypertension Chronic obstructive pulmonary disease Surgical History No history of previous surgery (05/30/17) Family History Mother CVA (cerebral infarction) Social History marital status: household members: spouse Smoking Status: Never smoker alcohol intake: current substance use type: does not use Smoking Status: Never smoker alcohol intake frequency: holidays/special occasions only Exam Narrative Exam Narrative: GEN: well nourished, well appearing female, alert and oriented x 3, patient appears to be in [id number] distress. HEENT: Atraumatic, patient has a small erythematous lesion on her left scalp and 2 small lesions just anterior to the hairline in the left side as well that appears somewhat like vesicles, no other rashes noted there was no other warmth erythema or swelling of the face, patient is nontender on exam sent for some slight tenderness in the scalp. Pupils are equal round reactive to light, extraocular movements are intact, nares are clear, TMs are clear with no fluid, there is no conjunctival pallor. Throat is clear without any exudates, erythema, tonsillar enlargement or uvular deviation, no new with the reproduce patient's pain he threw anterior to the ear. There was no tenderness over the parotid glands. Nontender with movement of the TMJs. No other discernible sw elling of the face, your neck. HEART: Regular rate and rhythm without murmur, clicks, rubs. LUNGS:Lungs clear to auscultation, no wheezes, rales, crackles, chest moves symmetrically ABD:bowel sounds normal, soft, non-tender, no guarding, rebound, rigidity, no masses noted, no hepatosplenomegaly MSCL: Non-tender, no muscle atrophy, muscles strength 5/5 upper and lower extremities, full range of motion, normal gait NEURO:CN 2-12 intact, sensation normal. Initial Vital Signs Initial Vital Signs: Vital Signs Temperature 98.4 F 09/06/24 04:43 Pulse Rate 75 09/06/24 04:43 Respiratory Rate 14 09/06/24 04:43 Blood Pressure 170/81 H 09/06/24 04:43 Pulse Oximetry 95 09/06/24 04:43 Oxygen Delivery Method Room Air 09/06/24 04:43 Course Orders Ordered: Discontinued Medications Hydrocodone Bitart/Acetaminophen (Hydrocodone/Acet 5/325 Prepack) 1 bottle MISC DIRECTED ONE Stop: 09/06/24 04:57 Last Admin: 09/06/24 05:21 Dose: 1 bottle Documented By: DAVID Acyclovir (Acyclovir 400 Mg Tablet) 800 mg PO NOW ONE Stop: 09/06/24 04:58 Last Admin: 09/06/24 05:21 Dose: 800 mg Documented By: DAVID Vital Signs Vital signs: Vital Signs - 8 hr 09/06/24 04:43 Temperature 98.4 F Pulse Rate 75 Respiratory Rate 14 Blood Pressure 170/81 H Pulse Oximetry 95 Oxygen Delivery Method Room Air Medical Decision Making MDM Narrative Medical decision making narrative: Discussed with pain seems most consistent with nerve pain possibly shingles she does have some small erythematous lesions on her scalp on symptoms are one- sided, trigeminal neuralgia was also in the differential. Suspicion for sinusitis is quite low. Patient does not have any obvious changes such as cellulitis or infection. Discussed with the patient we will have her stop antibiotics start oral acyclovir, Columbus PRN. She was have prescription for pregabalin although not taking it regularly so together she could try this stated Columbus to see if she has been improvement of her symptoms. Discharge Plan Departure Patient Disposition: Home Clinical Impression: Shingles Instructions: DI for Shingles Activity Restrictions/Additional Instructions: I hope you feel better soon. I suspect you may have shingles, please take the antivirals as prescribed. You can stop the antibiotics are currently taking. You can take Columbus 1-2 tablets every 6 hours as needed for pain. You can take your regular pregabalin as prescribed by your physician this maybe helpful for symptoms are related to nerve pain such as shingles or trigeminal neuralgia. Prescription was sent to [facility] in [place]. Please return if you develop fevers rapidly worsening changes, vision changes, new redness, warmth or swelling, nausea or vomiting, severe headaches or other new or concerning changes. Prescriptions: New acyclovir 800 mg tablet 800 mg PO 5XD 7 Days Qty: 35 0RF Rx Instructions: space evenly during waking hours hydrocodone-acetaminophen 5-325 mg tablet 1 tab PO Q6H PRN (Reason: pain) Qty: 10 0RF No Action amoxicillin-pot clavulanate 875-125 mg tablet 1 tab PO Q12H 10 Days Qty: 20 0RF losartan 50 mg tablet 50 mg PO DAILY Qty: 90 3RF pregabalin 25 mg capsule 25 mg PO TID Qty: 90 3RF Rx Instructions: Take one capsule up to 3 times as needed for neuropathy magnesium 250 mg tablet 250 mg PO DAILY betamethasone dipropionate 0.05 % ointment 1 applic topical BID fluticasone propionate [Flonase Allergy Relief] 50 mcg/actuation spray,suspension 1 spray intranasal DAILY PRN (Reason: allergy symptoms) Rx Instructions: administer into each nostril albuterol sulfate 90 mcg/actuation HFA aerosol inhaler 2 puff inhalation Q4-6H PRN (Reason: shortness of breath or wheezing) Qty: 8.5 3RF (DME) BreatheRite MDI Spacer Spacer See Rx Instructions .Route Qty: 1 0RF Rx Instructions: As directed Hair,Skin and Nails Tablet 1 tab PO DAILY hydroxyzine HCl 25 mg tablet 25 mg PO BEDTIME PRN (Reason: anxiety) Qty: 30 0RF Rx Instructions: Take 1/2 - 1 tablet nightly as needed for sleep Referrals: Archie Alexander MD [Primary Care Provider] - Stand Alone Forms: Patient Portal/API/Survey
[2024-09-06 04:43] VITALS: BP 170/81; PULSE 75; RESP 14; TEMP 36.9; O2SAT 95; BMI 25.6
[2024-09-06] MEDS: ACYCLOVIR 400 MG TABLET 800 MG PO (05:21)
[2024-09-06] MEDS: HYDROCODONE/ACET 5/325 PREPACK 1 BOTTLE MISC (05:21)
== END 2024-09-06 05:29 | disposition home or self-care (01) ==
PROVIDERS: Emergency Provider Emergency Medicine; PCP Family Medicine
DX: B02.9 Zoster without complications (principal)
CPT/HCPCS: 99283

== ENCOUNTER → 2024-09-09 08:07 | Outpatient (CLI) | payer MEDICARE, OTHER, SELFPAY ==
--- NOTE | 2024-09-09 08:08 | DI.CT.S_ITS ---
PROCEDURE: CT SINUS SCREEN WO CON INDICATIONS: Left side maxillary sinus pain TECHNIQUE: Noncontrast 3.0 mm axial images acquired from the frontal sinuses to the mid-sella, with coronal and sagittal reformats. For radiation dose reduction, the following was used: automated exposure control, adjustment of mA and/or kV according to patient size. COMPARISON: None. FINDINGS: Image quality: Excellent. Maxillary Sinuses: No bony remodeling or destruction. Mild mucosal thickening of the inferior maxillary sinuses, greater on the left.. Ethmoid Air Cells: No bony remodeling or destruction. Sinuses are clear. Sphenoid Sinuses: No bony remodeling or destruction. Sinuses are clear. Frontal Sinuses: No bony remodeling or destruction. Sinuses are clear. Ostiomeatal Complexes: Ostiomeatal complexes are patent but narrowed by bilateral Meenu cells. Miscellaneous: Visualized intra-orbital contents are normal. Bilateral lens replacements Left jb bullosa. No paradoxical turbinate curvature. Leftward nasal septal deviation with spurring. IMPRESSION: Mild mucosal thickening of the inferior maxillary sinuses bilaterally, greater on the left. Otherwise, no significant paranasal sinus disease. Dictated by: Kevin Boyle M.D. on 09/09/2024 at 10:32 Approved by: Kevin Boyle M.D. on 09/09/2024 at 10:35
== END ==
PROVIDERS: PCP Family Medicine; Referring Provider Physician Assistant; Visit Provider Physician Assistant
DX: J34.89 Other specified disorders of nose and nasal sinuses (principal); J32.0 Chronic maxillary sinusitis; R59.1 Generalized enlarged lymph nodes
CPT/HCPCS: 70486

== ENCOUNTER 2025-05-27 14:58 | Emergency (ER) | payer MEDICARE, OTHER, SELFPAY ==
[2025-05-27 15:14] VITALS: BP 142/70; PULSE 81; RESP 18; TEMP 37.1; O2SAT 97; BMI 23.1
--- NOTE | 2025-05-27 15:21 | DI.CT.S_ITS ---
PROCEDURE: CT CERVICAL SPINE WO CON INDICATIONS: fall TECHNIQUE: Noncontrast 3 mm thick sections acquired from the skull base to the T4 level. Sagittal and coronal reformats were then constructed. For radiation dose reduction, the following was used: automated exposure control, adjustment of mA and/or kV according to patient size. COMPARISON: [facility], MR, MR CERVICAL SPINE WO CON, 03/19/2021, 9:22. FINDINGS: Image quality: Excellent. Bones: Appearance of crystal lysed soft tissue pannus is present at the superior aspect of the dens unchanged. There is lucency through the midportion with cystic like appearance and disruption of the posterior cortex. Prior MRI in 2020 demonstrated similar although less significant changes within this region. Visualized superior ribs are intact. Exaggerated cervical curvature. Trace retrolisthesis of C3 on C4, C4 on C5, C5 on C6. Anterior fusion at C6-7. Soft tissues: Prevertebral soft tissues are normal in thickness. No paravertebral hematomas. No apical pneumothoraces. 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 Multiple areas of cystic change with cortical breakthrough along the posterior aspect of the mid dens. Process appeared similar although less severe in 202. While this is suspected to be related to chronic change, given history of trauma, superimposed acute injury cannot be definitively excluded. If clinical concern remains present, MRI is recommended. Dictated by: Anila Acevedo M.D. on 05/27/2025 at 16:00 Approved by: Anila Acevedo M.D. on 05/27/2025 at 16:05
--- NOTE | 2025-05-27 15:21 | DI.CT.S_ITS ---
PROCEDURE: CT HEAD/BRAIN WO CON INDICATIONS: fall TECHNIQUE: Noncontrast 4.5 mm thick angled axial sections acquired from the foramen magnum to the vertex, with coronal and sagittal reformats. For radiation dose reduction, the following was used: automated exposure control, adjustment of mA and/or kV according to patient size. COMPARISON: None. FINDINGS: Image quality: This examination is limited by involuntary motion artifact. CSF spaces: Basal cisterns are patent. No extra-axial fluid collections. The ventricles are symmetric in size and shape. Brain: No intracranial bleeds or mass effect. There is cerebral volume loss, with resultant ventricular and sulcal prominence. There are periventricular and deep white matter chronic small vessel ischemic changes. There is intracranial internal carotid artery atherosclerosis. Skull and face: A small scalp laceration can be seen on the right, as on series 5, image 28. Calvarium and visualized facial bones appear intact, without suspicious lesions. Sinuses: Visualized sinuses and mastoids are clear. IMPRESSION: Small scalp laceration seen on the right, without an associated fracture. No acute intracranial hemorrhage is seen. No acute intracranial pathology. Dictated by: Isai Emmanuel M.D. on 05/27/2025 at 14:48 Approved by: Isai Emmanuel M.D. on 05/27/2025 at 14:50
--- NOTE | 2025-05-27 15:22 | DI.RAD.S_ITS ---
PROCEDURE: XR KNEE RT 3V INDICATIONS: fall TECHNIQUE: 3 views of the knee were acquired. COMPARISON: [facility], XR KNEE ARTHRITIC SERIES LT, 01/05/2016, 12:55. FINDINGS: Bones: No fractures or dislocations. No suspicious bony lesions. Knee arthroplasty. Hardware is intact without hardware fracture or periprosthetic lucency to suggest loosening. Alignment is stable. Soft tissues: Mild joint effusion. No suspicious soft tissue calcifications. IMPRESSION: No visualized acute fracture or dislocation. However, if clinical concern and/or pain persist, short interval imaging followup in 7-10 days is recommended, as occult injury cannot be definitively excluded. Dictated by: Anila Acevedo M.D. on 05/27/2025 at 15:58 Approved by: Anila Acevedo M.D. on 05/27/2025 at 15:59
[2025-05-27] MEDS: TET,DIPH,PERTUSS(ACELL),VAC/PF 0.5 ML SYRINGE IM (16:28)
--- NOTE | 2025-05-27 17:03 | ED.FALL ---
HPI - Fall <Georgina Felipe PA-C - Last Filed: 05/27/25 19:46> General Chief Complaint: Fall Stated Complaint: fell and hit head Time Seen by Provider: 05/27/25 15:57 Source: patient Mode of arrival: Ambulatory History of Present Illness HPI Narrative: Ms. Karie Conde is a pleasant 84-year-old female with a past medical history of peripheral neuropathy, CKD, GERD, osteoarthritis who presents to the emergency department for injury sustained after a trip and fall that occurred prior to arrival. Patient states that she was outside on the sidewalk walking when she saw a cat and attempted to run towards the cat but tripped on her feet and fell forward. She scraped the anterior aspect of her right knee and also the right side of her scalp. She denies taking blood thinners, there was no LOC, she has been able to get up and ambulate since the event. She now has slight bleeding on her scalp and also the right knee. Reports some pain in the location of both of these abrasions but denies any headache, neck pain, chest pain, upper extremity pain, wrist pain, back pain. She is unsure of last Tdap. Related Data Home Medications ?Medication ?Instructions ?Recorded ?Confirmed betamethasone dipropionate 0.05 % 1 applic topical BID 02/12/24 09/23/24 topical ointment magnesium 250 mg tablet 250 mg PO DAILY 02/12/24 09/23/24 fluticasone propionate 50 1 spray intranasal DAILY PRN 06/15/24 09/23/24 mcg/actuation nasal allergy symptoms spray,suspension (Flonase Allergy Relief) multivitamin with minerals 1 tab PO DAILY 06/15/24 09/23/24 (Hair,Skin and Nails tablet) pregabalin 25 mg capsule 25 mg PO BID 04/12/25 04/12/25 Previous Rx's ?Medication ?Instructions ?Recorded losartan 50 mg tablet 50 mg PO DAILY #90 tabs 04/02/23 albuterol sulfate 90 mcg/actuation 2 puff inhalation Q4-6H PRN 06/15/24 aerosol inhaler shortness of breath or wheezing #8.5 grams hydroxyzine HCl 25 mg tablet 25 mg PO BEDTIME PRN anxiety #30 06/15/24 tabs inhalational spacing device #1 ea 06/15/24 (BreatheRite MDI Spacer) hydrocodone 5 mg-acetaminophen 325 1 tab PO Q8H PRN pain #21 tabs 12/31/24 mg tablet Allergies Allergy/AdvReac Type Severity Reaction Status Date / Time [id number]-BjC Reductase Allergy Severe swelling Verified 05/27/25 15:19 Inhibitor Sulfa (Sulfonamide Allergy Mild RASH Verified 05/27/25 15:19 Antibiotics) atorvastatin AdvReac Severe severe Verified 05/27/25 15:19 myalgia -ADMITTED TO ICU codeine AdvReac Mild N/V Verified 05/27/25 15:19 Review of Systems <Georgina Felipe PA-C - Last Filed: 05/27/25 19:46> Review of Systems ROS Unobtainable: All systems reviewed & are unremarkable except as noted in HPI and below Patient History <Georgina Felipe PA-C - Last Filed: 05/27/25 19:46> Medical History Gastric ulcer Postmenopausal Hemorrhoid Nausea Right upper quadrant pain COPD (chronic obstructive pulmonary disease) Urinary incontinence Anxiety Hayfever Asthma Hyperlipidemia Hypertension Chronic obstructive pulmonary disease Surgical History No history of previous surgery (05/30/17) Family History Mother CVA (cerebral infarction) Social History marital status: household members: spouse Smoking Status: Never smoker alcohol intake: current substance use type: does not use Smoking Status: Never smoker alcohol intake frequency: holidays/special occasions only Exam <Georgina Felipe PA-C - Last Filed: 05/27/25 19:46> Narrative Exam Narrative: GENERAL: 84 year old patient appears stated age. Well-developed patient, in no acute distress. HEAD: Normocephalic. No scalp tenderness. There is a superficial abrasion on the right posterior parietal scalp region with scant bleeding. EYES: PERRL. Extraocular motions intact. No scleral icterus. No injection or drainage. ENT: Nose without bleeding, purulent drainage. NECK: Trachea midline. Cervical ROM intact. No pain with ROM. No midline cervical tenderness or posterior scalp tenderness. CARDIOVASCULAR: Regular rate and rhythm. RESPIRATORY: ?Nonlabored respirations. ?Speaking in clear, full sentences. ?Clear to auscultation. Breath sounds equal bilaterally. No wheezes, rales, or rhonchi. ? EXTREMITIES: 2 superficial abrasions on the anterior right knee. Patient is able to flex and extend the knee appropriately, no gross reproducible joint laxity. 2+ bilateral DP and PT pulses. BACK: Nontender without deformity or crepitance. No flank tenderness. NEURO: AOx3. ?Clear speech. ?Moves all 4 extremities appropriately. SKIN: No rash or erythema of visible areas Initial Vital Signs Initial Vital Signs: Vital Signs Temperature 98.8 F 05/27/25 15:14 Pulse Rate 81 05/27/25 15:14 Respiratory Rate 18 05/27/25 15:14 Blood Pressure 142/70 H 05/27/25 15:14 Pulse Oximetry 97 05/27/25 15:14 Oxygen Delivery Method Room Air 05/27/25 15:14 <Michaelle Valadez MD - Last Filed: 05/27/25 23:59> Initial Vital Signs Initial Vital Signs: Vital Signs Temperature 98.8 F 05/27/25 15:14 Pulse Rate 81 05/27/25 15:14 Respiratory Rate 18 05/27/25 15:14 Blood Pressure 142/70 H 05/27/25 15:14 Pulse Oximetry 97 05/27/25 15:14 Oxygen Delivery Method Room Air 05/27/25 15:14 Course <Georgina Felipe PA-C - Last Filed: 05/27/25 19:46> Orders Ordered: ED Orders 05/27/25 15:21 CT cervical spine wo con Stat CT head/brain wo con Stat 05/27/25 15:22 XR knee RT 3V Stat Discontinued Medications Bacitracin (Bacitracin Oint 0.9 Gm Pckt) 2 applic TOP NOW ONE Stop: 05/27/25 18:08 Last Admin: 05/27/25 18:14 Dose: 2 applic Documented By: Diphtheria/Tetanus/Acell Pertussis (Tet,Diph,Pertuss(Acell),Vac/Pf 0.5 Ml Syringe) 0.5 ml IM .ONCE ONE Stop: 05/27/25 15:27 Last Admin: 05/27/25 16:28 Dose: 0.5 ml Documented By: Vital Signs Vital signs: Vital Signs - 8 hr 05/27/25 18:15 Temperature 98.4 F Pulse Rate 66 Respiratory Rate 19 Blood Pressure 135/78 Pulse Oximetry 98 Oxygen Delivery Method Room Air <Michaelle Valadez MD - Last Filed: 05/27/25 23:59> Orders Ordered: ED Orders 05/27/25 15:21 CT cervical spine wo con Stat CT head/brain wo con Stat 05/27/25 15:22 XR knee RT 3V Stat Discontinued Medications Bacitracin (Bacitracin Oint 0.9 Gm Pckt) 2 applic TOP NOW ONE Stop: 05/27/25 18:08 Last Admin: 05/27/25 18:14 Dose: 2 applic Documented By: Diphtheria/Tetanus/Acell Pertussis (Tet,Diph,Pertuss(Acell),Vac/Pf 0.5 Ml Syringe) 0.5 ml IM .ONCE ONE Stop: 05/27/25 15:27 Last Admin: 05/27/25 16:28 Dose: 0.5 ml Documented By: Vital Signs Vital signs: Vital Signs - 8 hr 05/27/25 18:15 Temperature 98.4 F Pulse Rate 66 Respiratory Rate 19 Blood Pressure 135/78 Pulse Oximetry 98 Oxygen Delivery Method Room Air MDM - Fall <Georgina Felipe PA-C - Last Filed: 05/27/25 19:46> Medical Records Attestation: I reviewed the patient's medical records. Imaging Data CT scan - head: Radiologist's Impression: PROCEDURE: CT HEAD/BRAIN WO CON INDICATIONS: fall TECHNIQUE: Noncontrast 4.5 mm thick angled axial sections acquired from the foramen magnum to the vertex, with coronal and sagittal reformats. For radiation dose reduction, the following was used: automated exposure control, adjustment of mA and/or kV according to patient size. COMPARISON: None. FINDINGS: Image quality: This examination is limited by involuntary motion artifact. CSF spaces: Basal cisterns are patent. No extra-axial fluid collections. The ventricles are symmetric in size and shape. Brain: No intracranial bleeds or mass effect. There is cerebral volume loss, with resultant ventricular and sulcal prominence. There are periventricular and deep white matter chronic small vessel ischemic changes. There is intracranial internal carotid artery atherosclerosis. Skull and face: A small scalp laceration can be seen on the right, as on series 5, image 28. Calvarium and visualized facial bones appear intact, without suspicious lesions. Sinuses: Visualized sinuses and mastoids are clear. IMPRESSION: Small scalp laceration seen on the right, without an associated fracture. No acute intracranial hemorrhage is seen. No acute intracranial pathology. Dictated by: Isai Emmanuel M.D. on 05/27/2025 at 14:48 Approved by: Isai Emmanuel M.D. on 05/27/2025 at 14:50 CT - cervical spine: Radiologist's Impression: PROCEDURE: CT CERVICAL SPINE WO CON INDICATIONS: fall TECHNIQUE: Noncontrast 3 mm thick sections acquired from the skull base to the T4 level. Sagittal and coronal reformats were then constructed. For radiation dose reduction, the following was used: automated exposure control, adjustment of mA and/or kV according to patient size. COMPARISON: [facility], , MR CERVICAL SPINE WO CON, 03/19/2021, 9:22. FINDINGS: Image quality: Excellent. Bones: Appearance of crystal lysed soft tissue pannus is present at the superior aspect of the dens unchanged. There is lucency through the midportion with cystic like appearance and disruption of the posterior cortex. Prior MRI in 2020 demonstrated similar although less significant changes within this region. Visualized superior ribs are intact. Exaggerated cervical curvature. Trace retrolisthesis of C3 on C4, C4 on C5, C5 on C6. Anterior fusion at C6-7. Soft tissues: Prevertebral soft tissues are normal in thickness. No paravertebral hematomas. No apical pneumothoraces. 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 Multiple areas of cystic change with cortical breakthrough along the posterior aspect of the mid dens. Process appeared similar although less severe in 202. While this is suspected to be related to chronic change, given history of trauma, superimposed acute injury cannot be definitively excluded. If clinical concern remains present, MRI is recommended. Dictated by: Anila Acevedo M.D. on 05/27/2025 at 16:00 Approved by: Ainla Acevedo M.D. on 05/27/2025 at 16:05 XR R Knee: Radiologist's Impression: PROCEDURE: XR KNEE RT 3V INDICATIONS: fall TECHNIQUE: 3 views of the knee were acquired. COMPARISON: [facility], XR KNEE [facility]THRIT[facility]IES LT, 01/05/2016, 12:55. FINDINGS: Bones: No fractures or dislocations. No suspicious bony lesions. Knee arthroplasty. Hardware is intact without hardware fracture or periprosthetic lucency to suggest loosening. Alignment is stable. Soft tissues: Mild joint effusion. No suspicious soft tissue calcifications. IMPRESSION: No visualized acute fracture or dislocation. However, if clinical concern and/or pain persist, short interval imaging followup in 7-10 days is recommended, as occult injury cannot be definitively excluded. Dictated by: Anila Acevedo M.D. on 05/27/2025 at 15:58 Approved by: Anila Acevedo M.D. on 05/27/2025 at 15:59 MDM Narrative Medical decision making narrative: 84-year-old female with a past medical history of peripheral neuropathy, CKD, GERD, osteoarthritis who presents to the emergency department for injury sustained after a trip and fall that occurred prior to arrival. No LOC, no syncope, mechanical fall. No thinners. Differential diagnosis includes but isn't limited to closed head injury, concussion, abrasion, knee fracture, sprain, strain, contusion, effusion, ICH, etc. On exam patient is in no acute distress, nontoxic appearing, vital signs appropriate. She has a superficial abrasion on the right parietal scalp and also on the anterior right knee. Right knee x-ray, head and neck CT obtained in triage. No signs of basilar skull fracture. Tdap was updated in the ER. Wounds were cleansed, bacitracin applied and dressings applied. X-ray right knee reveals no visualized acute fracture or dislocation, there is a mild joint effusion. Knee arthroplasty hardware is intact. Larry wrap was applied to the knee for support. CT head reveals small scalp laceration without associated fracture. No acute intracranial hemorrhage. No acute intracranial pathology. Cervical CT does reveal some chronic changes, superimposed acute injury can not be definitively excluded however patient is not experiencing any neck pain, pain with neck range of motion or posterior scalp pain. Printed and discussed all imaging results with the patient. Patient states that she was aware of her cervical changes. Advised she follow up with her PCP, discussed supportive care, strict ER return precautions, wound care. Patient verbalized understanding of all information agreeable with the plan. She is ambulatory stable for discharge home. Discharge Plan Departure Patient Disposition: Home Clinical Impression: Fall Qualifiers: Encounter type: initial encounter Qualified Code(s): W19.XXXA - Unspecified fall, initial encounter Abrasion of scalp Qualifiers: Encounter type: initial encounter Qualified Code(s): S00.01XA - Abrasion of scalp, initial encounter Abrasion of knee Qualifiers: Encounter type: initial encounter Laterality: right Qualified Code(s): S80.211A - Abrasion, right knee, initial encounter Effusion of knee Qualifiers: Laterality: right Qualified Code(s): M25.461 - Effusion, right knee Instructions: DI for Abrasion Activity Restrictions/Additional Instructions: Dear Lanny Elton, Thank you for coming to the emergency department. Today you were evaluated for an injury after a fall. You have a superficial abrasion your scalp which we applied a pressure gauze dressing to. You may remove the head wrap and apply a hat or head band over top of the skull just hold pressure for tonight. We put antibiotic ointment on your right knee. Please wash both of your wounds at least once a day with warm soapy water, pat dry, then apply antibiotic ointment. Please use the Larry wrap to keep compression on your right knee due to the effusion. Please use RICE therapy for your pain in addition to ibuprofen/acetaminophen. Rest the painful area. Ice the area of pain/swelling for at least 15 minutes, 4x a day. Compress the area of swelling using a brace, wrap, or splint if applied. Elevate the painful or swollen extremity by supporting it above the level of the heart with pillows when sitting or laying. Please call to schedule an appointment with an [facility] primary care provider for a follow up appointment. Please follow up with your primary care doctor within the next 2-3 days for ER follow-up. (If you do not have a PCP you can call [phone]. ?to schedule an appointment with an [facility] Primary Care Provider) IF YOU DEVELOP ANY NEW OR WORSENING SYMPTOMS, RETURN TO THE ER! Please read the attached instructions, they highlight more specific treatments and interventions for you at home. Thank you for letting me participate in your care, Georgina Felipe PA-C Prescriptions: No Action losartan 50 mg tablet 50 mg PO DAILY Qty: 90 3RF magnesium 250 mg tablet 250 mg PO DAILY betamethasone dipropionate 0.05 % ointment 1 applic topical BID pregabalin 25 mg capsule 25 mg PO BID Rx Instructions: Take one capsule up to 3 times as needed for neuropathy fluticasone propionate [Flonase Allergy Relief] 50 mcg/actuation spray,suspension 1 spray intranasal DAILY PRN (Reason: allergy symptoms) Rx Instructions: administer into each nostril albuterol sulfate 90 mcg/actuation HFA aerosol inhaler 2 puff inhalation Q4-6H PRN (Reason: shortness of breath or wheezing) Qty: 8.5 3RF (DME) BreatheRite MDI Spacer Spacer See Rx Instructions .Route Qty: 1 0RF Rx Instructions: As directed Hair,Skin and Nails Tablet 1 tab PO DAILY hydroxyzine HCl 25 mg tablet 25 mg PO BEDTIME PRN (Reason: anxiety) Qty: 30 0RF Rx Instructions: Take 1/2 - 1 tablet nightly as needed for sleep hydrocodone-acetaminophen 5-325 mg tablet 1 tab PO Q8H PRN (Reason: pain) Qty: 21 0RF Referrals: Archie Alexander MD [Primary Care Provider, Family Practice] Stand Alone Forms: Patient Portal/API ED Sign-out <Michaelle Valadez MD - Last Filed: 05/27/25 23:59> Cosign ED Attending Cosignature Attestation: I was immediately available in the department for consultation throughout this patient's visit. Michaelle Valadez MD
[2025-05-27] MEDS: BACITRACIN OINT 0.9 GM PCKT 2 APPLIC TOP (18:14)
[2025-05-27 18:15] VITALS: BP 135/78; PULSE 66; RESP 19; TEMP 36.9; O2SAT 98
--- NOTE | 2025-05-27 18:16 | PC.NURSE ---
Irrigated scalp and right knee. Pt tolerated poorly. Dressing placed to knee.
== END 2025-05-27 18:18 | disposition home or self-care (01) ==
PROVIDERS: Emergency Provider Physician Assistant; PCP Family Medicine
DX: S00.01XA Abrasion of scalp, initial encounter (principal); S80.211A Abrasion, right knee, initial encounter; M25.461 Effusion, right knee; W01.0XXA Fall on same level from slipping, tripping and stumbling without subsequent striking against object, initial encounter; Z23 Encounter for immunization
CPT/HCPCS: 70450; 72125; 73562; 90471; 99283; 99284; 90715